=== PATIENT | male | born 1970 | race Caucasian/White ===

== ENCOUNTER 2021-02-22 18:03 | Emergency (ER) | payer BC ==
[2021-02-22 19:11] VITALS: TEMP 99
--- NOTE | 2021-02-22 19:36 | ED ---
General Adult HPI - General Chief complaint: Shortness of Breath Stated complaint: Nausea, loss of tast & smell, fatigue Time Seen by Provider: 02/22/21 19:15 Source: patient, family (), RN notes reviewed Mode of arrival: ambulatory Limitations: no limitations - History of Present Illness Initial comments: This is a well-appearing 50-year-old male that presents to the emergency room with complaints of 7 days of cough, shortness of breath, nausea and body aches. He denies any vomiting or diarrhea. He has had chills but no fevers. His tested positive for covid today. The symptoms have been ongoing since last Thursday. He has history of rheumatoid arthritis. Denies any other medical history, no medicines on a daily basis, not ALLERGIC to any medications. -: days(s) (7) Location: chest Severity scale (1-10): 7 Quality: aching Consistency: constant Improves with: none Associated Symptoms: cough, nausea/vomiting, shortness of breath, other (sore throat, body aches) - Related Data Home Medications Medication Instructions Recorded Confirmed No Known Home Medications 02/22/21 02/22/21 Allergies Allergy/AdvReac Type Severity Reaction Status Date / Time No Known Allergies Allergy Verified 02/22/21 20:28 Review of Systems ROS Statement: Those systems with pertinent positive or pertinent negative responses have been documented in the HPI. ROS Other: All systems not noted in ROS Statement are negative. Past Medical History Past Medical History: Rheumatoid Arthritis (RA) History of Any Multi-Drug Resistant Organisms: None Reported Past Surgical History: No Surgical Hx Reported Past Psychological History: No Psychological Hx Reported Smoking Status: Never smoker Past Alcohol Use History: None Reported Past Drug Use History: None Reported General Exam Limitations: no limitations General appearance: alert, in no apparent distress Head exam: Present: atraumatic, normocephalic, normal inspection Eye exam: Present: normal appearance, EOMI ENT exam: Present: normal exam, normal oropharynx, mucous membranes moist Neck exam: Present: normal inspection, full ROM. Absent: tenderness, meningismus, lymphadenopathy, thyromegaly Respiratory exam: Present: normal lung sounds bilaterally. Absent: respiratory distress, wheezes, rales, rhonchi, stridor, chest wall tenderness, accessory muscle use Cardiovascular Exam: Present: regular rate, normal rhythm, normal heart sounds. Absent: systolic murmur, diastolic murmur, rubs, gallop, clicks, JVD GI/Abdominal exam: Present: soft, normal bowel sounds. Absent: distended, tenderness, guarding, rebound, rigid Extremities exam: Present: full ROM. Absent: pedal edema Back exam: Absent: tenderness, CVA tenderness (R), CVA tenderness (L) Neurological exam: Present: alert, oriented X3 Psychiatric exam: Present: normal affect, normal mood Skin exam: Present: warm, dry, intact, normal color. Absent: rash, cyanosis, diaphoretic Course Vital Signs 02/22/21 02/22/21 19:08 23:31 Temperature 99 F Pulse Rate 95 86 Respiratory 16 22 Rate Blood Pressure 124/77 124/71 O2 Sat by Pulse 97 98 Oximetry Medical Decision Making - Medical Decision Making This is a 50-year-old male patient who presents to the emergency room code exposure to his . He states that he has had symptoms for 10 days. He was given the monoclonal antibodies infusion based on the fact that his tested positive yesterday. Tolerated the infusion well and his vital signs are stable at discharge. He was instructed to quarantine for 10 days from symptom onset and 24 hours without a fever. He was directed to return to the emergency room with any new or concerning symptoms. Vitamin C, vitamin D and zinc for immune health. Tylenol and/or Motrin as needed for pain. Disposition Clinical Impression: Exposure to COVID-19 virus Disposition: HOME SELF-CARE Condition: Good Instructions (If sedation given, give patient instructions): Viral Syndrome (ED) Additional Instructions: Return to the emergency room with any new or worsening symptoms, take Tylenol and/or Motrin as needed for fever or body aches. Self quarantine for 10 days from symptom onset and 24 hours without fever. You can also take vitamin D, vitamin C and zinc for immune support. Increase your fluid intake to prevent dehydration. Is patient prescribed a controlled substance at d/c from ED?: No Referrals: None,Stated [Primary Care Provider] - 1-2 days Sharon Torres MD [STAFF PHYSICIAN] - 1-2 days Time of Disposition: 22:46
[2021-02-22] MEDS ORDERED: ACETAMINOPHEN TAB 325 MG TAB PO STA (19:38)
[2021-02-22] MEDS ORDERED: BAMLANIVIMAB (EUA) 700 MG, ETESEVIMAB (EUA) 1,400 MG in SODIUM CHLORIDE 0.9% 50 ML IVPB ONE (21:15)
[2021-02-22] MEDS ORDERED: SODIUM CHLORIDE 0.9% 50 ML IVPB ONE (21:15)
[2021-02-22 23:32] VITALS: BP 124/71; PULSE 86; RESP 22
== END 2021-02-22 23:32 | disposition home or self-care (01) ==
LOC: EC 18:03
DX: Z20.822 Contact with and (suspected) exposure to COVID-19 (principal)
CPT/HCPCS: 99284; 96365; J3490

== ENCOUNTER → 2021-05-22 | Outpatient (CLI) | payer BC ==
--- NOTE | 2021-05-22 08:41 | CT ---
EXAMINATION TYPE: CT knee LT wo con DATE OF EXAM: 05/22/2021 COMPARISON: None available HISTORY: Fall, tibial plateau fx CT DLP: 522.7 mGycm Automated exposure control for dose reduction was used. TECHNIQUE: Multiplanar CT scan of the left knee without IV contrast administration with 3-D reconstru ction images. FINDINGS: Comminuted depressed fracture involving the left lateral tibial condyle articular surface. There is a depression of about 5 mm at the fracture site and extending for about 2.4 cm in transverse dimension . Multiple fracture lines are seen extending inferiorly through the proximal portion of the tibia fro m the depression site and seen extending from the anterior margin of the tibia to its lateral margin. There is a gap up to 5 mm at the anterior aspect of the longitudinal fracture. The fracture apparentl y extends to the proximal tibiofibular articulation which appears nondisplaced without dislocation or subluxation. No other definite acute fracture line identified. Minimal tibiofemoral osteophytosis. S [id number] knee joint effusion. IMPRESSION: Lateral tibial condyle intra-articular depressed fracture as detailed above.
== END | disposition home or self-care (01) ==
LOC: RADCTMAIN 06:23
PROVIDERS: ATTEND Orthopaedic Surgery
DX: S82.122A Displaced fracture of lateral condyle of left tibia, initial encounter for closed fracture (principal); W19.XXXA Unspecified fall, initial encounter

== ENCOUNTER 2021-06-14 11:56 | Inpatient (IN) | payer BC ==
[2021-06-14 13:31] LABS: Basophils % (A) 1 %; Eosinophils # (A) 0.2 k/uL (0-0.7); Eosinophils % (A) 3 %; HCT 44.8 % (39.0-53.0); HGB 14.4 gm/dL (13.0-17.5); Lymphocytes # (A) 1.4 k/uL (1.0-4.8); Lymphocytes % (A) 21 %; MCH 29.6 pg (25.0-35.0); MCHC 32.2 g/dL (31.0-37.0); MCV 91.8 fL (80.0-100.0); Mean Platelet Volume 7.1; Monocytes # (A) 0.3 k/uL (0-1.0); Monocytes % (A) 5 %; Neutrophils # (A) 4.6 k/uL (1.3-7.7); Neutrophils % (A) 69 %; Platelet Count 264 k/uL (150-450); RBC 4.87 m/uL (4.30-5.90); RDW 13.1 % (11.5-15.5); WBC 6.6 k/uL (3.8-10.6)
[2021-06-14 13:36] LABS: African American GFR (CKD) >90 (>60 ml/min/1.73 sqM); Anion Gap 4 mmol/L; Blood Urea Nitrogen 13 mg/dL (9-20); Calcium 9.3 mg/dL (8.4-10.2); Carbon Dioxide 30 mmol/L (22-30); Chloride 106 mmol/L (98-107); Glucose 91 mg/dL (74-99); Non-African American GFR(CKD) >90 (>60 ml/min/1.73 sqM); Potassium 4.4 mmol/L (3.5-5.1); Sodium 140 mmol/L (137-145)
--- NOTE | 2021-06-14 13:36 | ED ---
General Adult HPI - General Chief complaint: Recheck/Abnormal Lab/Rx Stated complaint: Blood Clot/Lt leg Time Seen by Provider: 06/14/21 12:15 Source: patient, RN notes reviewed, old records reviewed Mode of arrival: wheelchair Limitations: no limitations - History of Present Illness Initial comments: Patient is a 50-year-old male with past medical history remarkable for left tibial plateau fracture that is being managed medically [facility] with a multi-day history of worsening lower extremity edema, as well as some discomfort. Saw his orthopedic surgeon today, who sent him for ultrasound to evaluate for DVT. DVTs ultrasound was positive for left femoral DVT. Presents for further evaluation. Patient does endorse having some left- sided rib pain that started when he began using crutches. Denies any shortness of breath, however does endorse some mild rib discomfort that is improving over the last few weeks. It is somewhat pleuritic in nature. His no other acute complaints at this time. Denies any teddy chest pain, fevers, chills, cough. No history of blood clots. Presents for DVT and concern for possible blood clot in his lungs. - Related Data Home Medications Medication Instructions Recorded Confirmed No Known Home Medications 02/22/21 02/22/21 Allergies Allergy/AdvReac Type Severity Reaction Status Date / Time No Known Allergies Allergy Verified 06/14/21 12:00 Review of Systems ROS Statement: Those systems with pertinent positive or pertinent negative responses have been documented in the HPI. Review of Systems: CONST: Denies fever EYES: Denies blurry vision ENT: Denies nasal congestion C/V: Endorses pleuritic chest discomfort RESP: Denies shortness of breath GI: Denies abdominal pain : Denies dysuria SKIN: Endorses left lower extremity edema MSK: Endorses left groin pain NEURO: Denies headache ROS Other: All systems not noted in ROS Statement are negative. Past Medical History Past Medical History: Rheumatoid Arthritis (RA) History of Any Multi-Drug Resistant Organisms: None Reported Past Surgical History: No Surgical Hx Reported Past Psychological History: No Psychological Hx Reported Smoking Status: Never smoker Past Alcohol Use History: None Reported Past Drug Use History: None Reported General Exam - General Exam Comments Initial Comments: General: Appears in no acute distress. HEAD: Normal with no signs of head trauma. EYES: PERRLA, EOMI, conjunctiva normal, no discharge. ENT: Hearing grossly intact, normal oropharynx. RESPIRATORY: Clear breath sounds bilaterally. No wheezes, rales, or rhonchi. No hypoxia. No increased work of breathing. C/V: Regular rate and rhythm. S1 and S2 auscultated. Pitting edema of the left lower extremity is present distal to the brace. Peripheral pulses are 2+ and intact throughout, including the left DP and left PT. ABD: Abd is soft, nontender, nondistended EXT: Normal range of motion, no obvious deformity. Left knee braces in place. Edema distal to the left knee brace. SKIN: No rashes or lesions observed on exposed skin. NEURO: Alert and oriented 4. Neurovascular intact throughout. No focal deficits. Limitations: no limitations Course Vital Signs 06/14/21 11:57 Temperature 98.5 F Pulse Rate 103 H Respiratory 20 Rate Blood Pressure 134/74 O2 Sat by Pulse 96 Oximetry Medical Decision Making - Medical Decision Making Based on the patient's presentation and physical exam, he has a known left femoral DVT and there is concern for possible pulmonary embolism. Therefore we will obtain basic laboratory studies, screening EKG as well as a CT angiogram to evaluate for PE. Patient was in agreement this plan. EKG showed no signs of acute ischemia.Labs were unremarkable. CT PE did reveal bilateral subsegmental and segmental pulmonary emboli. I discussed this with the radiologist. No sign of right heart strain. I did discuss with the patient regarding the CT findings. He will be started on a heparin drip. He will be admitted to the hospital. He continues to have stable vital signs within normal limits throughout his stay. I spoke with the admitting team under Dr. Leal was in agreement this plan. Pulmonology Dr. freeman was consulted who agreed to value the patient. Patient will be admitted to a telemetry bed and serous condition. Cardiology was consulted to evaluate the echo, looking for right heart strain. - Lab Data Result diagrams: 06/14/21 13:07 06/14/21 13:07 Lab Results 06/14/21 06/14/21 06/14/21 Range/Units 13:07 13:07 13:07 WBC 6.6 (3.8-10.6) k/uL RBC 4.87 (4.30-5.90) m/uL Hgb 14.4 (13.0-17.5) gm/dL Hct 44.8 (39.0-53.0) % MCV 91.8 (80.0-100.0) fL MCH 29.6 (25.0-35.0) pg MCHC 32.2 (31.0-37.0) g/dL RDW 13.1 (11.5-15.5) % Plt Count 264 (150-450) k/uL MPV 7.1 Neutrophils % 69 % Lymphocytes % 21 % Monocytes % 5 % Eosinophils % 3 % Basophils % 1 % Neutrophils # 4.6 (1.3-7.7) k/uL Lymphocytes # 1.4 (1.0-4.8) k/uL Monocytes # 0.3 (0-1.0) k/uL Eosinophils # 0.2 (0-0.7) k/uL Basophils # 0.0 (0-0.2) k/uL PT 11.1 (9.0-12.0) sec INR 1.0 (<1.2) APTT 22.6 (22.0-30.0) sec Sodium 140 (137-145) mmol/L Potassium 4.4 (3.5-5.1) mmol/L Chloride 106 (98-107) mmol/L Carbon Dioxide 30 (22-30) mmol/L Anion Gap 4 mmol/L BUN 13 (9-20) mg/dL Creatinine 0.85 (0.66-1.25) mg/dL Est GFR (CKD-EPI)AfAm >90 (>60 ml/min/1.73 sqM) Est GFR (CKD-EPI)NonAf >90 (>60 ml/min/1.73 sqM) Glucose 91 (74-99) mg/dL Calcium 9.3 (8.4-10.2) mg/dL - EKG Data -: EKG Interpreted by Me EKG Comments: 12-lead Electrocardiogram Interpretation Note EKG was reviewed and interpreted by myself. 12-lead ECG performed at 1311 is interpreted by me as revealing normal sinus rhythm at a rate of 87 beats per minute. [place] is normal. AL interval is 154 ms, QRS duration is 92 ms, QTc is 394 ms.. There were no ST or T wave abnormalities to suggest myocardial ischemia or injury. R wave progression across the precordium was satisfactory. By my interpretation this EKG is non-diagnostic for acute ischemia. Critical Care Time Critical Care Time: Yes Total Critical Care Time: 35 Critical Care Time: Upon my evaluation, this patient had a high probability of imminent or life- threatening deterioration due to bilateral pulmonary emboli, left groin DVT, started on heparin, which required my direct attention, intervention, and personal management. I have personally provided 35 minutes of critical care time exclusive of time spent on separately billable procedures. Time includes review of laboratory data, radiology results, discussion with consultants, and monitoring for potential decompensation. Interventions were performed as documented in my note. Disposition Clinical Impression: Pulmonary embolism, DVT (deep venous thrombosis), Tibial plateau fracture, left Disposition: ADMITTED IP TO THIS HOSP Condition: Serious Referrals: Roberto Jewell DO [Primary Care Provider] - 1-2 days
[2021-06-14 13:41] LABS: Partial Thromboplastin Time 22.6 sec (22.0-30.0); Prothrombin Time 11.1 sec (9.0-12.0)
[2021-06-14] MEDS ORDERED: HEPARIN SODIUM 1,000 UN/ML (10ML VL) IV ONE (15:16)
[2021-06-14] MEDS ORDERED: HEPARIN SODIUM 1,000 UN/ML (10ML VL) IV PRN (15:16)
--- NOTE | 2021-06-14 15:21 | CT ---
EXAMINATION TYPE: CT chest angio for PE DATE OF EXAM: 06/14/2021 COMPARISON: None available HISTORY: Chest pain. History of recent leg injury on 05/18/21. CT DLP: 388.9 mGy.cm. Automated Exposure Control for Dose Reduction was Utilized. TECHNIQUE AND CONTRAST: CTA scan of the thorax is performed with IV Contrast, patient injected with 80ml mL of Isovue 370, pu lmonary angiogram protocol. MIP Images are created on CT scanner and reviewed. FINDINGS: Pulmonary emboli are seen in the segmental and subsegmental branches of the right lobe pulmonary angi maxim and to a lesser extent in the left lower lobe pulmonary arteries. No definite pulmonary emboli s een within the pulmonary trunk or the main pulmonary arteries. No signs of right cardiac strain. No g ross cardiomegaly. No sizable pericardial effusion. Unremarkable thoracic aorta and its main branches . Bilateral basal linear pulmonary atelectasis with air bronchogram, thicker on the left side. Lingular atelectasis is also noted, infarction cannot be excluded. Follow-up to complete resolution. Patent t rachea and main bronchi. No pleural effusion. No pathologically enlarged lymph nodes in the chest. Un remarkable upper abdomen. No aggressive bone lesion. IMPRESSION: 1. Bilateral segmental and subsegmental lower lobe pulmonary emboli as described above. No signs of r ight cardiac strain. 2. Bilateral basal pulmonary atelectasis more on the left side. Pulmonary infarction or underlying le erich can't be excluded. Recommend follow-up to complete resolution. Other incidental findings as desc ribed above. Findings were discussed with the referring ER physician immediately after the CT scan was performed.
[2021-06-14] MEDS ORDERED: NALOXONE 0.4 MG/ML 1 ML VIAL IV PRN (15:31)
[2021-06-14] MEDS ORDERED: ONDANSETRON 4 MG/2 ML VIAL IVP PRN (15:31)
[2021-06-14] MEDS ORDERED: MORPHINE SULFATE 4 MG/ML SYRINGE IVP PRN (15:33)
[2021-06-14] MEDS: HEPARIN SOD,PORK IN 0.45% NACL 25,000 UNIT in 0.45% NACL 1 250ML.BAG IV SCH (15:39)
[2021-06-14] MEDS ORDERED: ALPRAZolam 0.25 MG TAB PO PRN (16:12)
[2021-06-14] MEDS ORDERED: HYDROcodone/APAP 5-325MG 1 EACH TAB PO PRN (16:12)
[2021-06-14] MEDS: SODIUM CHLORIDE 0.9% 1,000 ML IV SCH (17:32)
[2021-06-14 17:40] LABS: INR 1.1 (<1.2)
[2021-06-14 17:57] LABS: Partial Thromboplastin Time 171.2 sec (22.0-30.0)
--- NOTE | 2021-06-14 18:51 | HP ---
HISTORY AND PHYSICAL DATE OF SERVICE: 06/14/2021. CHIEF COMPLAINT: Bilateral chest pains and as well as left leg pain. HISTORY OF PRESENT ILLNESS: This 50-year-old gentleman with a past medical history of fibromyalgia, hypothyroidism, being followed by Dr. Roberto Jewell in the outpatient setting had a recent fall and had left plateau fracture which was being managed conservatively by Dr. Keller. The patient is complaining of left leg pain, calf pain, and as well as some chest pains bilaterally. The patient was found to have left leg DVT. Patient came to [facility] and evaluation showed evidence of bilateral segmental subsequent lower lobe pulmonary embolism with no signs of any cardiac strain and bilateral basilar pulmonary atelectasis also noted. Pulmonary infarction cannot be ruled out. There is no history of fever, rigors. No headache, loss of consciousness, seizures at this time. PAST MEDICAL HISTORY: History of fibromyalgia, hypothyroidism. MEDICATIONS: Home medications none. ALLERGIES: None. FAMILY HISTORY: No history of any DVT. History of abdominal aortic aneurysm and dementia. SOCIAL HISTORY: No history of smoking. No history of alcohol intake. REVIEW OF SYSTEMS: 14-point review is negative except as mentioned earlier. PHYSICAL EXAMINATION: Pulse is 87, blood pressure 143/94, respiration 18, pulse ox 98% on room air. HEENT: Conjunctivae normal. CARDIOVASCULAR: S1, S2 muffled. RESPIRATION: Breath sounds diminished in the bases. No rhonchi. No crackles. ABDOMEN: Soft, nontender. No mass palpable. LEGS: Left knee in splint status post fracture. Left leg swelling also present. Mildly tender. SKIN: No ulcers. No rashes. JOINTS: No active deforming arthropathy. NERVOUS SYSTEM: No focal deficits. LABS: Reviewed. CT angio personally reviewed. The EKG reviewed, normal. ASSESSMENT: 1. Acute bilateral pulmonary embolism with pulmonary infarct, possibly. 2. Acute deep vein thrombosis of the left leg. 3. History of recent left knee fracture with tibial femoral plateau fracture. 4. Fibromyalgia. RECOMMENDATIONS AND DISCUSSION: This 50-year-old gentleman who presented with multiple medical issues, we will monitor the patient closely. I would recommend IV heparin. Pulmonary and Hematology evaluation. Otherwise symptomatic treatment. The patient will require further anticoagulant workup as an outpatient because of acute PE. Otherwise, we will monitor and ensure oxygenation. Prognosis guarded. Further recommendations to follow. MMODL / IJN: [id number] /
[2021-06-15] MEDS: SODIUM CHLORIDE 0.9% 1,000 ML IV SCH ×2 (03:29→20:01)
[2021-06-15] MEDS: HEPARIN SOD,PORK IN 0.45% NACL 25,000 UNIT in 0.45% NACL 1 250ML.BAG IV SCH ×2 (03:29→19:59)
[2021-06-15 04:44] LABS: Basophils % (A) 1 %; Eosinophils # (A) 0.3 k/uL (0-0.7); Eosinophils % (A) 4 %; HCT 41.7 % (39.0-53.0); HGB 13.5 gm/dL (13.0-17.5); Lymphocytes # (A) 1.3 k/uL (1.0-4.8); Lymphocytes % (A) 21 %; MCH 29.9 pg (25.0-35.0); MCHC 32.5 g/dL (31.0-37.0); MCV 92.1 fL (80.0-100.0); Mean Platelet Volume 7.1; Monocytes # (A) 0.4 k/uL (0-1.0); Monocytes % (A) 6 %; Neutrophils # (A) 4.3 k/uL (1.3-7.7); Neutrophils % (A) 67 %; Platelet Count 223 k/uL (150-450); RBC 4.53 m/uL (4.30-5.90); RDW 12.9 % (11.5-15.5); WBC 6.4 k/uL (3.8-10.6)
[2021-06-15 05:19] LABS: ALT 12 U/L (4-49); AST 21 U/L (17-59); African American GFR (CKD) >90 (>60 ml/min/1.73 sqM); Albumin 3.7 g/dL (3.5-5.0); Alkaline Phosphatase 71 U/L (38-126); Anion Gap 8 mmol/L; Blood Urea Nitrogen 13 mg/dL (9-20); Calcium 8.4 mg/dL (8.4-10.2); Carbon Dioxide 28 mmol/L (22-30); Chloride 104 mmol/L (98-107); Glucose 91 mg/dL (74-99); Non-African American GFR(CKD) >90 (>60 ml/min/1.73 sqM); Sodium 140 mmol/L (137-145); Total Bilirubin 0.5 mg/dL (0.2-1.3); Total Protein 6.5 g/dL (6.3-8.2)
[2021-06-15] MEDS: PANTOPRAZOLE 40 MG TABLET PO SCH (06:26)
--- NOTE | 2021-06-15 07:19 | XR ---
EXAMINATION TYPE: XR chest 1V portable DATE OF EXAM: 06/15/2021 COMPARISON: None HISTORY: CHF TECHNIQUE: Single frontal view of the chest is obtained. FINDINGS: There is a small focal opacity obscuring the left costophrenic angle which possibly repres ents a small pneumonic infiltrate. The right lung is clear. There is no pneumothorax or large pleural effusion. Heart size is normal and the vasculature is not congested. The osseous structures are intact. IMPRESSION: Small focal opacity left lung base. The findings most consistent with pneumonic infiltra te. Clinical correlation short-term follow-up to resolution is recommended. There is no overt CHF.
--- NOTE | 2021-06-15 10:58 | P.CNOR ---
History of Present Illness - [facility] Consult date: 06/15/21 Consult reason: fracture (Follow-up tibial plateau fracture left leg.) History of present illness: This is a 50-year-old male who has been following with our office regarding his tibial plateau fracture of his left knee. He has been managed nonoperatively. He was seen in the office on 06/14/2021 and had complaints of increased swelling to the lower extremity. He had also been complaining of some left-sided rib pain which she thought was attributed to using his crutches. He was sent for a venous Doppler which was positive for DVT. He was then referred to the emergency department for further evaluation and workup. On CTA he was found to have bilateral pulmonary emboli. He is admitted to internal medicine. We are consulted for follow-up of the left knee. Past Medical History Past Medical History: Fibromyalgia, Thyroid Disorder Additional Past Medical History / Comment(s): L tibial plateau fracture being treated medically, past hypothyroid/no longer needs to take medication. History of Any Multi-Drug Resistant Organisms: None Reported Past Surgical History: No Surgical Hx Reported Additional Past Surgical History / Comment(s): EGD, colonoscopy, capsule endoscopy Past Anesthesia/Blood Transfusion Reactions: No Reported Reaction Past Psychological History: No Psychological Hx Reported Additional Psychological History / Comment(s): Pt resides with his spouse. 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 Smoking Status: Never smoker Past Alcohol Use History: None Reported Past Drug Use History: None Reported - Past Family History Father Family Medical History: Dementia, Vascular Disorder Additional Family Medical History / Comment(s): AAA repair Mother Family Medical History: Hypertension, Musculoskeletal Disorder, Neurologic Disorder Additional Family Medical History / Comment(s): Parkinson's, Reynaulds Medications and Allergies Home Medications Medication Instructions Recorded Confirmed Type No Known Home Medications 02/22/21 06/14/21 History Allergies Allergy/AdvReac Type Severity Reaction Status Date / Time No Known Allergies Allergy Verified 06/14/21 15:56 Physical Examination This is a pleasant 50-year-old male in no acute distress. He is alert and oriented 3. Exam of the head neck reveal no obvious deformity. He has full cervical spine motion without difficulty or pain. Exam the upper extremities is unremarkable. He has full shoulder, elbow, wrist and finger motion bilaterally. Neurovascular status to the upper extremities is intact. Exam of the lower extremities reveals mild swelling to the left lower leg and ankle. He has resting with his brace off and his knee in extension. He has full foot and ankle motion without difficulty or pain. Minimal Pain with palpation. Results - Labs Labs: Abnormal Lab Results - Last 24 Hours (Table) 06/14/21 06/14/21 06/15/21 Range/Units 16:43 21:22 04:22 APTT 171.2 H* 75.6 H 65.0 H (22.0-30.0) sec H & H 06/14/21 06/15/21 Range/Units 13:07 04:22 Hgb 14.4 13.5 (13.0-17.5) gm/dL Hct 44.8 41.7 (39.0-53.0) % Coagulation 06/14/21 06/14/21 Range/Units 13:07 16:43 INR 1.0 1.1 (<1.2) Result Diagrams: 06/15/21 04:22 06/15/21 04:22 Assessment and Plan (1) DVT (deep venous thrombosis) Current Visit: Yes Status: Acute Code(s): I82.409 - ACUTE EMBOLISM AND THOMBOS UNSP DEEP VN UNSP LOWER EXTREMITY SNOMED Code(s): 144369246 (2) Pulmonary embolism Current Visit: Yes Status: Acute Code(s): I26.99 - OTHER PULMONARY EMBOLISM WITHOUT ACUTE COR PULMONALE SNOMED Code(s): 10793661 (3) Tibial plateau fracture, left Current Visit: Yes Status: Acute Code(s): S82.142A - DISPLACED BICONDYLAR FRACTURE OF LEFT TIBIA, INIT SNOMED Code(s): 803365499 Plan: The clinical findings are discussed with the patient. He is to continue with the knee brace when he is up. He may have the brace off when in bed. His activity level will be dictated by internal medicine. He is scheduled for fol low-up with Dr. Keller in 2 weeks. He is to keep that appointment or call sooner if any orthopedic questions or concerns arise.
--- NOTE | 2021-06-15 12:17 | ECHOF ---
Referral Reason:Pulmonary emboli bilateral MEASUREMENTS -------- HEIGHT: 188.0 cm WEIGHT: 90.7 kg BP: RVIDd: 2.4 cm (< 3.3) IVSd: 1.0 cm (0.6 - 1.1) LVIDd: 4.9 cm (3.9 - 5.3) LVPWd: 1.3 cm (0.6 - 1.1) IVSs: 1.1 cm LVIDs: 3.6 cm LVPWs: 1.3 cm LA Diam: 4.1 cm (2.7 - 3.8) Ao Diam: 2.9 cm (2.0 - 3.7) AV Cusp: 2.0 cm (1.5 - 2.6) LA Diam: 3.6 cm (2.7 - 3.8) MV EXCURSION: 21.910 mm (> 18.000) MV EF SLOPE: 198 mm/s (70 - 150) EPSS: 0.7 cm MV E Giovanny: 0.63 m/s MV DecT: 147 ms MV A Giovanny: 0.69 m/s MV E/A Ratio: 0.91 RAP: 5.00 mmHg RVSP: 22.82 mmHg FINDINGS -------- Sinus rhythm. This was a technically good study. LV size, wall thickness and systolic function are normal, with an EF greater than 55%. The left cali tricular size is normal. The right ventricle is normal in size. The left atrium is mildly dilated. The right atrial size is normal. The aortic valve is trileaflet, and appears structurally normal. No aortic stenosis or regurgitation. Mild mitral regurgitation is present. Mild tricuspid regurgitation present. Right ventricular systolic pressure is normal at < 35 mmHg. There is no pulmonic regurgitation present. There is a trivial pericardial effusion present. CONCLUSIONS -------- 1. LV size, wall thickness and systolic function are normal, with an EF greater than 55%. 2. The left ventricular size is normal. 3. The right ventricle is normal in size. 4. The left atrium is mildly dilated. 5. The right atrial size is normal. 6. The aortic valve is trileaflet, and appears structurally normal. No aortic stenosis or regurgitati on. 7. Mild mitral regurgitation is present. 8. Mild tricuspid regurgitation present. 9. There is no pulmonic regurgitation present. 10. There is a trivial pericardial effusion present. TIE HACKER: Isabel Terrell RDCS
--- NOTE | 2021-06-15 13:05 | P.CRDCN ---
History of Present Illness History of present illness: 50-year-old gentleman with history of hypothyroidism and fibromyalgia and a recent fall and fracture of the left patella and tibia. He was Being managed conservatively by Dr. Keller. Presented to hospital with left leg and calf pain and chest discomfort bilaterally. Chest discomfort is sharp moderate intensity and was pleuritic in nature. This is associated with exertional shortness of breath. 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 He was found to have left leg DVT and a computed tomography scan of the chest revealed bilateral pulmonary embolism without any evidence of strain on the computed tomography scan. An echoc ardiogram which I personally reviewed shows normal LV systolic function normal size right ventricle no evidence of pulmonary hypertension and no evidence of RV strain. Patient should continue IV heparin and should be switched to oral anticoagulant off to 48 hours. Constitutional: Denies chills. Denies fever. Eyes: Denies blurred vision. Denies pain. Ears, nose, mouth and throat: Denies headache. Denies sore throat. Cardiovascular: Pleuritic chest pain Respiratory: Significant for shortness of breath and pleuritic chest pain Gastrointestinal: Denies abdominal pain. Denies diarrhea. Denies nausea. Denies vomiting. Musculoskeletal: Denies myalgias. Integumentary: Denies pruritus. Denies rash. Neurological: Denies numbness. Denies weakness. Psychiatric: Denies anxiety. Denies depression. Endocrine: Denies fatigue. Denies weight change. Genitourinary: Denies burning, hematuria, frequency of urination. Hematological: No anemia or excess bleeding. General: The patient is awake and alert, in no distress, and does not appear acutely ill. Skin: Skin is warm and dry and no rashes or lesions are noted. Eye: Pupils are equal, round and reactive to light, extra-ocular movements are intact; there is normal conjunctiva bilaterally. Ears, nose, mouth and throat: There are moist mucous membranes and no oral lesions. Neck: The neck is supple, there is no tenderness or JVD. Cardiovascular: There is a regular rate and rhythm. No murmur, rub or gallop is appreciated. Respiratory: Lungs are clear to auscultation, respirations are non-labored, breath sounds are equal. Gastrointestinal: Soft, non-distended, non-tender abdomen without masses or organomegaly noted. There is no rebound or guarding present. Bowel sounds are unremarkable. Back: There is no tenderness to palpation in the midline. There is no obvious deformity. Musculoskeletal: Normal ROM, no tenderness, There is no pedal edema. There is no calf tenderness or swelling. Extremities: No edema. Vascular: Femoral pulse is normal. Posterior tibial pulses are normal .Dorsalis pedis is palpable. Neurological: CN II-XII intact. There are no obvious motor or sensory deficits. Speech is normal. Psychiatric: Cooperative, appropriate mood & affect, normal judgment. Assessment and plan: Acute left leg DVT with bilateral pulmonary embolism secondary to fracture involving left leg I will continue IV heparin I reviewed 2-D echo patient does not have any evidence of RV strain We'll convert him to either Xarelto or eliquis Past Medical History Past Medical History: Fibromyalgia, Thyroid Disorder Additional Past Medical History / Comment(s): L tibial plateau fracture being treated medically, past hypothyroid/no longer needs to take medication. History of Any Multi-Drug Resistant Organisms: None Reported Past Surgical History: No Surgical Hx Reported Additional Past Surgical History / Comment(s): EGD, colonoscopy, capsule endoscopy Past Anesthesia/Blood Transfusion Reactions: No Reported Reaction Past Psychological History: No Psychological Hx Reported Additional Psychological History / Comment(s): Pt resides with his spouse. 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 Smoking Status: Never smoker Past Alcohol Use History: None Reported Past Drug Use History: None Reported - Past Family History Father Family Medical History: Dementia, Vascular Disorder Additional Family Medical History / Comment(s): AAA repair Mother Family Medical History: Hypertension, Musculoskeletal Disorder, Neurologic Disorder Additional Family Medical History / Comment(s): Parkinson's, Reynaulds Medications and Allergies Home Medications Medication Instructions Recorded Confirmed Type No Known Home Medications 02/22/21 06/14/21 History Allergies Allergy/AdvReac Type Severity Reaction Status Date / Time No Known Allergies Allergy Verified 06/14/21 15:56 Physical Exam Vitals: Vital Signs Temp Pulse Pulse Resp BP BP Pulse Ox 06/15/21 11:30 97.8 F 89 18 143/88 96 06/15/21 08:32 98.3 F 92 18 145/78 96 06/15/21 03:55 98 F 77 18 120/74 98 06/14/21 23:49 98.1 F 93 17 132/82 95 06/14/21 20:00 98 F 94 18 145/81 97 06/14/21 17:58 97.2 F L 105 H 18 97 06/14/21 17:33 102 H 18 151/92 96 06/14/21 15:56 87 18 153/95 98 Intake and Output 06/14/21 06/15/21 06/15/21 22:59 06:59 14:59 Intake Total 349.132 74.752 118 Balance 349.132 74.752 118 Intake: Intake, IV Titration 109.132 74.752 Amount Heparin Sod,Pork in 0.45% 109.132 74.752 NaCl 25,000 unit In 0.45 % NaCl 1 250ml.bag @ 18 UNITS/KG/HR 16.329 mls/hr IV .[id number] [facility] Rx#: [id number] Oral 240 118 Other: Voiding Method Toilet Toilet Toilet Urinal # Voids 1 1 Weight 90.718 kg 92 kg Results 06/15/21 04:22 06/15/21 04:22 Cardiac Enzymes 06/14/21 06/14/21 06/15/21 Range/Units 18:18 21:22 04:22 AST 21 (17-59) U/L Troponin I <0.012 <0.012 (0.000-0.034) ng/mL Coagulation 06/14/21 06/14/21 06/14/21 Range/Units 13:07 16:43 21:22 PT 11.1 12.0 (9.0-12.0) sec APTT 22.6 171.2 H* 75.6 H (22.0-30.0) sec 06/15/21 Range/Units 04:22 PT (9.0-12.0) sec APTT 65.0 H (22.0-30.0) sec CBC 06/14/21 06/15/21 Range/Units 13:07 04:22 WBC 6.6 6.4 (3.8-10.6) k/uL RBC 4.87 4.53 (4.30-5.90) m/uL Hgb 14.4 13.5 (13.0-17.5) gm/dL Hct 44.8 41.7 (39.0-53.0) % Plt Count 264 223 (150-450) k/uL Comprehensive Metabolic Panel 06/14/21 06/15/21 Range/Units 13:07 04:22 Sodium 140 140 (137-145) mmol/L Potassium 4.4 4.0 (3.5-5.1) mmol/L Chloride 106 104 (98-107) mmol/L Carbon Dioxide 30 28 (22-30) mmol/L BUN 13 13 (9-20) mg/dL Creatinine 0.85 0.88 (0.66-1.25) mg/dL Glucose 91 91 (74-99) mg/dL Calcium 9.3 8.4 (8.4-10.2) mg/dL AST 21 (17-59) U/L ALT 12 (4-49) U/L Alkaline Phosphatase 71 (38-126) U/L Total Protein 6.5 (6.3-8.2) g/dL Albumin 3.7 (3.5-5.0) g/dL Current Medications Generic Name Dose Route Start Last Admin Trade Name Freq PRN Reason Stop Dose Admin Hydrocodone Bitart/Acetaminophen 1 each 06/14/21 16:12 Hydrocodone/Apap 5-325mg 1 Each Tab PO Q6HR PRN Pain Alprazolam 0.25 mg 06/14/21 16:12 Alprazolam 0.25 Mg Tab PO TID PRN Anxiety Heparin Sodium (Porcine) 0 unit 06/14/21 15:16 Heparin Sodium 1,000 Un/Ml (10ml Vl) IV PER PROTOCOL PRN Low PTT Protocol Heparin Sodium/Sodium Chloride 250 mls @ 16.329 mls/hr 06/14/21 15:30 06/15/21 03:29 25,000 unit/ Sodium Chloride IV 16 units/kg/hr .[id number] STEPHANIE 14.515 mls/hr Administration Protocol 18 UNITS/KG/HR Sodium Chloride 1,000 mls @ 75 mls/hr 06/14/21 15:45 06/15/21 03:29 Saline 0.9% IV 75 mls/hr .[id number] STEPHANIE Administration Morphine Sulfate 4 mg 06/14/21 15:33 Morphine Sulfate 4 Mg/Ml Syringe IVP Q6HR PRN Pain Naloxone HCl 0.2 mg 06/14/21 15:31 Naloxone 0.4 Mg/Ml 1 Ml Vial IV Q2M PRN Opioid Reversal Ondansetron HCl 4 mg 06/14/21 15:31 Ondansetron 4 Mg/2 Ml Vial IVP Q8HR PRN Nausea And Vomiting Pantoprazole Sodium 40 mg 06/15/21 07:30 06/15/21 06:26 Pantoprazole 40 Mg Tablet PO Not Given [id number] [facility] Intake and Output 06/14/21 06/15/21 06/15/21 22:59 06:59 14:59 Intake Total 349.132 74.752 118 Balance 349.132 74.752 118 Intake: Intake, IV Titration 109.132 74.752 Amount Heparin Sod,Pork in 0.45% 109.132 74.752 NaCl 25,000 unit In 0.45 % NaCl 1 250ml.bag @ 18 UNITS/KG/HR 16.329 mls/hr IV .[id number] [facility] Rx#: [id number] Oral 240 118 Other: Voiding Method Toilet Toilet Toilet Urinal # Voids 1 1 Weight 90.718 kg 92 kg 06/15/21 04:22 06/15/21 04:22
--- NOTE | 2021-06-15 15:15 | P.CNPUL ---
History of Present Illness Consult date: 06/15/21 Requesting physician: Lisa Leal Reason for consult: dyspnea, chest pain, hypoxemia, pulmonary embolism, abnormal CXR/CT Chief complaint: Shortness of breath and left-sided chest pain. History of present illness: Pulmonary consult dated 06/15/2021. 50-year-old male who was seen in the emergency department yesterday, June 14. He has a history of recent left tibial plateau fracture, this pain managed medically by one of the orthopedic surgeons. More recently, he complained of 2 things including some left-sided chest pain or chest discomfort. He apparently noticed some swelling in his left lower extremity. When he saw the orthopedic surgeon on the day of his admission to the hospital, he was sent for an ultrasound to evaluate for DVT. He apparently had a left femoral DVT. Because of worsening shortness of breath, and inability to take a deep breath without pain, the patient was sent for CTA which showed pulmonary embolism, bilaterally, in the segmental and subsegmental branches of the pulmonary arteries. In addition, on the left side, the patient had a classic Charles's Hump, consistent with pulmonary infarction. The patient is currently not short of breath. He is on room air. He is receiving IV heparin. I spent a great deal time talking to him about the fact that he had a provoked pulmonary embolism, should be treated for 3 months. The trigger in his case was the left tibial plateau fracture. The CTA was negative for right heart strain. The patient could be placed on a factor X a inhibitor, and discharged. He is currently very stable. White count 6.4, he will 13.5, hematocrit 41.7, platelet count 223,000. PTT is 65. Sodium 140, potassium 4, chlorides 104, CO2 28, anion gap 8, BUN 13, creatinine 0.88. Chest x-ray shows a small focal opacity in the left lung base. CAT scan shows bilateral segmental and subsegmental lower lobe pulmonary emboli. Review of Systems REVIEW OF SYSTEMS: CONSTITUTIONAL: [Negative.] NEUROLOGIC: [ Negative.] HEENT: [ Negative.] CARDIAC: Pleuritic chest pain. Left leg swelling. PULMONARY: Shortness of breath, and inability to take a deep breath without pain. GI: [Negative.] : [Negative.] RHEUMATOLOGIC: [ Negative.] IMMUNOLOGIC: [ Negative.] ENDOCRINE: [Negative. ] DERMATOLOGIC: [Negative.] Past Medical History Past Medical History: Fibromyalgia, Thyroid Disorder Additional Past Medical History / Comment(s): L tibial plateau fracture being treated medically, past hypothyroid/no longer needs to take medication. History of Any Multi-Drug Resistant Organisms: None Reported Past Surgical History: No Surgical Hx Reported Additional Past Surgical History / Comment(s): EGD, colonoscopy, capsule endoscopy Past Anesthesia/Blood Transfusion Reactions: No Reported Reaction Past Psychological History: No Psychological Hx Reported Additional Psychological History / Comment(s): Pt resides with his spouse. 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 Smoking Status: Never smoker Past Alcohol Use History: None Reported Past Drug Use History: None Reported - Past Family History Father Family Medical History: Dementia, Vascular Disorder Additional Family Medical History / Comment(s): AAA repair Mother Family Medical History: Hypertension, Musculoskeletal Disorder, Neurologic Disorder Additional Family Medical History / Comment(s): Parkinson's, Reynaulds Medications and Allergies Home Medications Medication Instructions Recorded Confirmed Type No Known Home Medications 02/22/21 06/14/21 History Allergies Allergy/AdvReac Type Severity Reaction Status Date / Time No Known Allergies Allergy Verified 06/14/21 15:56 Physical Exam Osteopathic Statement: *. No significant issues noted on an osteopathic structural exam other than those noted in the History and Physical/Consult. Vitals: Vital Signs Temp Pulse Pulse Resp BP BP Pulse Ox 06/15/21 14:49 18 06/15/21 11:30 97.8 F 89 18 143/88 96 06/15/21 08:32 98.3 F 92 18 145/78 96 06/15/21 03:55 98 F 77 18 120/74 98 06/14/21 23:49 98.1 F 93 17 132/82 95 06/14/21 20:00 98 F 94 18 145/81 97 06/14/21 17:58 97.2 F L 105 H 18 97 06/14/21 17:33 102 H 18 151/92 96 06/14/21 15:56 87 18 153/95 98 Intake and Output 06/15/21 06/15/21 06/15/21 06:59 14:59 22:59 Intake Total 74.752 118 Balance 74.752 118 Intake: Intake, IV Titration 74.752 Amount Heparin Sod,Pork in 0.45% 74.752 NaCl 25,000 unit In 0.45 % NaCl 1 250ml.bag @ 18 UNITS/KG/HR 16.329 mls/hr IV .[id number] [facility] Rx#: [id number] Oral 118 Other: Voiding Method Toilet Toilet # Voids 1 3 Weight 92 kg No acute distress, oriented 3. Currently on room air. Saturations are 96-98%. HEENT examination is grossly unremarkable. Neck supple. Full range of motion. No adenopathy thyromegaly or neck vein distention. Cardiovascular examination reveals regular rhythm rate. S1-S2 normal. No S3 or S4. No discernible murmur noted. Heart rate 77 bpm. Lungs reveal clear breath sounds. Breath sounds are equal bilaterally. No adventitious lung sounds including wheezes rhonchi or crackles. No pleural friction rub noted. Abdomen soft bowel sounds are heard. No masses or tenderness. Extremities are intact. No cyanosis or clubbing. Left leg minimally swollen compared to the right. Skin is without rash or lesion. Neurologic examination is brief but nonfocal. Results - Laboratory Findings CBC and BMP: 06/15/21 04:22 06/15/21 04:22 PT/INR, D-dimer PT 12.0 sec (9.0-12.0) 06/14/21 16:43 INR 1.1 (<1.2) 06/14/21 16:43 Abnormal lab findings: Abnormal Labs 06/14/21 06/14/21 06/15/21 16:43 21:22 04:22 APTT 171.2 H* 75.6 H 65.0 H - Diagnostic Findings Chest x-ray: image reviewed CT scan - chest: image reviewed Assessment and Plan Assessment: Pulmonary infarction, left lung, in a patient with bilateral lower lobe segmental and subsegmental pulmonary emboli and left lower extremity DVT. Left tibial plateau fracture. History of rheumatoid arthritis. Recent history of coronavirus infection. Lifelong nonsmoker. Plan: Plan dated 06/15/2021. The patient can be placed on a factor X a inhibitor. The patient had a provoked pulmonary embolus some. The likely trigger was the left tibial plateau fracture. In addition, the patient recently had a coronavirus infection. Nonetheless, the patient should be treated for 3 months. I did explain what the blood thinners. Currently, he is on IV heparin. Interestingly, this patient has a classic Charles's Hump, in the left lung, consistent with pulmonary infarction. The patient's currently on room air. No reason to keep him in the hospital till Thursday. The patient should follow with me after discharge. In 8- 10 weeks, he'll need a follow-up CT angiogram. Time with Patient: Greater than 30
--- NOTE | 2021-06-15 18:40 | PN ---
PROGRESS NOTE DATE OF SERVICE: 06/15/2021 This 50-year-old gentleman admitted with acute pulmonary embolism and DVTs is on IV heparin. No chest pain. No palpitations. No fever. PHYSICAL EXAMINATION: Pulse is 101, blood pressure 152/84 respiration 18. CHEST: Clear to auscultation. CARDIOVASCULAR: S1, S2, muffled. No S3, no S4, ABDOMEN: Soft. LEGS: Left knee is painful, some swelling present. LABS: Reviewed. ASSESSMENT: 1. Acute bilateral pulmonary embolism with pulmonary infarct. 2. Acute deep vein thrombosis of the left leg. 3. History of recent left tibial plateau fracture. 4. Fibromyalgia. RECOMMENDATION: Recommend to continue current management and continue symptomatic treatment. Continue with anticoagulation. Closely follow with Pulmonary and as well as Hematology/Oncology. Hematology/Oncology workup as an outpatient. Prognosis guarded. Further recommendations to follow. MMODL / REVAN: [id number] /
--- NOTE | 2021-06-15 22:01 | CONS ---
CONSULTATION DATE OF SERVICE: June 15, 2021. REASON FOR CONSULTATION: Deep venous thrombosis and pulmonary embolus. CHIEF COMPLAINT: Swollen leg. HISTORY OF PRESENT ILLNESS: Don is a pleasant 50-year-old gentleman who had a fracture of his tibia about a month ago, has been managed conservatively, wearing a brace and also using crutches. However, he presented initially with some swelling in his left lower extremity. Subsequently, he developed a pleuritic type chest pain. Led to an ultrasound of his leg, which was positive for acute DVT involving the proximal femoral vein. Subsequently had CT scan angiogram of the chest. The patient was referred to the hospital and he did have a CT scan of the chest which revealed bilateral segmental and subsegmental lower extremity pulmonary emboli, so the patient ended up being admitted to the hospital and started on IV heparin. The patient feels better now. He continues to have some swelling in his legs. He denies any previous history of deep venous thrombosis or pulmonary emboli. He is otherwise relatively healthy. He continues to have some pleuritic type chest pain. Of note, the patient recently also had munoz virus infection. But he is an otherwise relatively healthy and active gentleman. He feels fine otherwise. Denies any fever, chills, nausea, vomiting. No hemoptysis, no melena, hematochezia, hematuria, hemoptysis hematemesis or epistaxis. No skin rash or itching. He has no fever, night sweats, or weight loss. PAST MEDICAL HISTORY: Otherwise negative. FAMILY HISTORY: Negative for deep venous thrombosis or pulmonary emboli. HOME MEDICATION: He does not take any medication at home. ALLERGIES: There is no known drug allergy. REVIEW OF SYSTEMS: As stated above in the history of present illness. PHYSICAL EXAMINATION: He is alert, oriented x3. No acute distress. Well developed, well nourished. His temperature 98, afebrile, pulse is 101, respiration 18, blood pressure 152/84, pulse ox 97 percent on room air. HEENT: Normocephalic, atraumatic. No icterus. NECK: Supple. No jugular venous distention. CHEST: Equal expansion bilaterally. LUNGS: Clear to auscultation. HEART is regular rate and rhythm. ABDOMEN: Soft. No obvious organomegaly or masses. No tenderness or ascites. Bowel sounds present. EXTREMITIES: He has 1+ edema in the left lower extremity. LYMPHATICS: No peripherally enlarged cervical or supraclavicular lymph nodes. MUSCULOSKELETAL: Moving all extremities appropriately. No percussion tenderness detected over his spine, sternum. LABORATORY DATA: WBC of 6.4, hemoglobin 13.5, hematocrit 41.7, platelets are 223. Sodium 140, potassium 4.0, chloride 104. LFTs are within normal limits. IMPRESSION: Left lower extremity deep venous thrombosis and bilateral pulmonary emboli complicated by pulmonary infarction. This is likely provoked from his recent fracture of the left tibia and he has wearing brace. Also recently had COVID infection as well. He has no prior personal history of deep venous thrombosis or pulmonary emboli and no family history of such. RECOMMENDATION: 1. The patient could be switched to Doac and discharged home. 2. He will require a minimum of 3 months of anticoagulation. 3. We could consider hypercoagulability workup in the outpatient setting. However, at this time, it is not going to alter medical management. The above was discussed in detail with the patient. I have answered all her questions. Thank you very much for asking me to participate in the care of this nice gentleman. MMODL / IJN: [id number] /
[2021-06-16] MEDS: SODIUM CHLORIDE 0.9% 1,000 ML IV SCH ×2 (06:00→20:35)
[2021-06-16] MEDS: PANTOPRAZOLE 40 MG TABLET PO SCH (06:00)
[2021-06-16] MEDS: APIXABAN 5 MG TAB PO SCH ×2 (12:15→20:35)
--- NOTE | 2021-06-16 13:15 | P.PN ---
Subjective Progress Note Date: 06/16/21 50-year-old male who was seen in the emergency department yesterday, June 14. He has a history of recent left tibial plateau fracture, this pain managed medically by one of the orthopedic surgeons. More recently, he complained of 2 things including some left-sided chest pain or chest discomfort. He apparently noticed some swelling in his left lower extremity. When he saw the orthopedic surgeon on the day of his admission to the hospital, he was sent for an ultrasound to evaluate for DVT. He apparently had a left femoral DVT. Because of worsening shortness of breath, and inability to take a deep breath without pain, the patient was sent for CTA which showed pulmonary embolism, bilaterally, in the segmental and subsegmental branches of the pulmonary arteries. In addition, on the left side, the patient had a classic Charles's Hump, consistent with pulmonary infarction. The patient is currently not short of breath. He is on room air. He is receiving IV heparin. I spent a great deal time talking to him about the fact that he had a provoked pulmonary embolism, should be treated for 3 months. The trigger in his case was the left tibial plateau fracture. The CTA was negative for right heart strain. The patient could be placed on a factor X a inhibitor, and discharged. He is cu rrently very stable. White count 6.4, he will 13.5, hematocrit 41.7, platelet count 223,000. PTT is 65. Sodium 140, potassium 4, chlorides 104, CO2 28, anion gap 8, BUN 13, creatinine 0.88. Chest x-ray shows a small focal opacity in the left lung base. CAT scan shows bilateral segmental and subsegmental lower lobe pulmonary emboli. The patient is CTA 06/16/2021 in follow-up on the selective care unit. He is sitting up in bed. Awake and alert in no acute distress. Maintaining good O2 saturations in the 90s on room air. No shortness of breath cough or congestion. No chest wall discomfort. No pleuritic pain. No hemoptysis. Maintaining good O2 saturations in the 90s on room air. He is afebrile. Hemodynamically stable. He remains on a heparin drip. Objective - Vital Signs Vital signs: Vital Signs Temp 98.1 F 06/16/21 12:27 Pulse 72 06/16/21 12:27 Resp 18 06/16/21 12:27 BP 154/97 06/16/21 12:27 Pulse Ox 97 06/16/21 12:27 Intake & Output 06/15/21 06/16/21 06/16/21 17:59 06:59 18:59 Intake Total 120 Balance 120 Weight Intake: Intake, IV Titration Amount Heparin Sod,Pork in 0.45% NaCl 25,000 unit In 0.45 % NaCl 1 250ml.bag @ 18 UNITS/KG/HR 16.329 mls/hr IV .[id number] [facility] Rx#: [id number] Oral 120 Other: Voiding Method Toilet # Voids 2 # Bowel Movements 0 - Exam GENERAL EXAM: Alert, very pleasant 50-year-old male patient, on room air, comfortable in no apparent distress. HEAD: Normocephalic. EYES: Normal reaction of pupils, equal size. NOSE: Clear with pink turbinates. THROAT: No erythema or exudates. NECK: No masses, no JVD. CHEST: No chest wall deformity. LUNGS: Equal air entry with no crackles, wheeze, rhonchi or dullness. CVS: S1 and S2 normal with no audible murmur, regular rhythm. ABDOMEN: No hepatosplenomegaly, normal bowel sounds, no guarding or rigidity. SPINE: No scoliosis or deformity SKIN: No rashes CENTRAL NERVOUS SYSTEM: No focal deficits, tone is normal in all 4 extremities. EXTREMITIES: There is no peripheral edema. No clubbing, no cyanosis. Peripheral pulses are intact. - Labs CBC & Chem 7: 06/15/21 04:22 06/15/21 04:22 Labs: Abnormal Lab Results - Last 24 Hours (Table) 06/16/21 Range/Units 04:49 APTT 48.4 H (22.0-30.0) sec Assessment and Plan Assessment: 1 Pulmonary infarction, left lung, in a patient with bilateral lower lobe segmental and subsegmental pulmonary emboli and left lower extremity DVT. 2 Left tibial plateau fracture. 3 History of rheumatoid arthritis. 4 Recent history of coronavirus infection. 5 Lifelong nonsmoker. Plan: The patient was seen and evaluated He will be transitioned to Eliquis Stable and on room air Cleared for discharge from the pulmonary standpoint Follow-up in our office in 1-2 weeks' Plan will be for follow-up CT angiogram in 3 months Provoked PE/DVT, anticoagulated for 3 months I have personally seen and examined the patient, performed the documentation and the assessment and plan as written. Number of minutes spent on the visit: 10.
--- NOTE | 2021-06-16 13:45 | PN ---
PROGRESS NOTE oDn is a 50-year-old gentleman who was admitted to the hospital with DVT and pulmonary embolism. His echocardiogram showed normal LV function without any evidence of RV strain. This morning he is feeling good. On exam, vital signs are stable. There is no jugular venous distention. Chest exam reveals good air entry bilaterally. Heart exam reveals first and second heart sounds. No gallop. No murmur. Abdomen is soft. Exam of extremities reveals left leg edema, but that has improved from yesterday. Medications include Eliquis. ASSESSMENT: Left leg deep vein thrombosis with pulmonary embolism. There is no evidence of RV strain either on the echo or the CAT scan. The patient is doing well. He has been switched from heparin to Eliquis. Hopefully, home tomorrow. MMODL / IJN: [id number] /
--- NOTE | 2021-06-16 18:38 | PN ---
PROGRESS NOTE DATE OF SERVICE: 06/16/2021 This 50-year-old gentleman, admitted with pulmonary embolism, also had DVT. The patient had recent left knee trauma. No chest pain. No palpitation. PHYSICAL EXAMINATION: Pulse 72, blood pressure 150/97, respiration 18. Chest: Clear to auscultation. Abdomen: Soft, nontender. Nervous system: No focal deficits. Exam of the left leg minimal swelling. LABS: APTT noted. ASSESSMENT: 1. Acute bilateral pulmonary embolism with pulmonary infarct. 2. Acute deep vein thrombosis of the left leg. 3. History of recent left tibial plateau fracture. 4. Fibromyalgia. RECOMMENDATIONS AND DISCUSSION: I recommend to continue current management. Symptomatic treatment. Check pharmacy clearance. Prognosis guarded. Further recommendations to follow. MMTRACEEL / REVAN: [id number] / MTDD
[2021-06-17 02:37] VITALS: PULSE 91
[2021-06-17] MEDS: APIXABAN 5 MG TAB PO SCH (07:34)
[2021-06-17] MEDS: SODIUM CHLORIDE 0.9% 1,000 ML IV SCH (07:34)
[2021-06-17] MEDS: PANTOPRAZOLE 40 MG TABLET PO SCH (07:34)
[2021-06-17 07:58] VITALS: BP 143/76; RESP 18; TEMP 98.5
--- NOTE | 2021-06-17 12:38 | P.PN ---
Subjective Progress Note Date: 06/17/21 On today's evaluation of 06/17/2021, the patient is doing well. No specific complaints. He is off IV heparin and the patient is currently on anticoagulation with Eliquis per protocol. No complaints been no chest pain. No hemoptysis. No pleurisy. No shortness of breath. Pulse ox to 94% on room air oxygen. He is using a crutch regarding a tibial plateau fracture. His echocardiogram was also completed and the patient was found to have a preserved LV function with a normal ejection fraction. No significant pulmonary hypertension. No valvular heart disease. Objective - Vital Signs Vital signs: Vital Signs Temp 98.5 F 06/17/21 07:09 Pulse 91 06/17/21 07:09 Resp 18 06/17/21 07:09 BP 143/76 06/17/21 07:09 Pulse Ox 94 L 06/17/21 07:09 Intake & Output 06/16/21 06/17/21 06/17/21 18:59 06:59 18:59 Intake Total 540 1100 Balance 540 1100 Intake: Intake, IV Titration 900 Amount Sodium Chloride 0.9% 1, 900 000 ml @ 75 mls/hr IV . [id number] [facility] Rx#:[id number] Oral 540 200 Other: Voiding Method Toilet Toilet # Voids 3 3 1 # Bowel Movements 0 - Exam GENERAL EXAM: Alert, very pleasant 50-year-old male patient, on room air, comfortable in no apparent distress. HEAD: Normocephalic. EYES: Normal reaction of pupils, equal size. NOSE: Clear with pink turbinates. THROAT: No erythema or exudates. NECK: No masses, no JVD. CHEST: No chest wall deformity. LUNGS: Equal air entry with no crackles, wheeze, rhonchi or dullness. CVS: S1 and S2 normal with no audible murmur, regular rhythm. ABDOMEN: No hepatosplenomegaly, normal bowel sounds, no guarding or rigidity. SPINE: No scoliosis or deformity SKIN: No rashes CENTRAL NERVOUS SYSTEM: No focal deficits, tone is normal in all 4 extremities. EXTREMITIES: There is no peripheral edema. No clubbing, no cyanosis. Peripheral pulses are intact. - Labs CBC & Chem 7: 06/15/21 04:22 06/15/21 04:22 Assessment and Plan Plan: 1 Pulmonary infarction, left lung, in a patient with bilateral lower lobe segmental and subsegmental pulmonary emboli and left lower extremity DVT. 2 Left tibial plateau fracture. 3 History of rheumatoid arthritis. 4 Recent history of coronavirus infection. 5 Lifelong nonsmoker. Plan: He will be transitioned to Eliquis Stable and on room air Cleared for discharge from the pulmonary standpoint The patient will be continuing and to coagulation somewhere between 3 months to 6 months Follow-up in our office in 1-2 weeks'
--- NOTE | 2021-06-17 14:42 | P.PN ---
Subjective Progress Note Date: 06/17/21 Principal diagnosis: LLE DVT/bilateral PE In f/u today pt has been started on eliquis, tolerating well, no bleeding to report. He cont to have some rib pain on the left with deep inspiration, nothing severe Objective - Vital Signs Vital signs: Vital Signs Temp 98.5 F 06/17/21 07:09 Pulse 91 06/17/21 07:09 Resp 18 06/17/21 07:09 BP 143/76 06/17/21 07:09 Pulse Ox 94 L 06/17/21 07:09 Intake & Output 06/16/21 06/17/21 06/17/21 18:59 06:59 18:59 Intake Total 540 1100 Balance 540 1100 Intake: Intake, IV Titration 900 Amount Sodium Chloride 0.9% 1, 900 000 ml @ 75 mls/hr IV . [id number] [facility] Rx#:[id number] Oral 540 200 Other: Voiding Method Toilet Toilet # Voids 3 3 1 # Bowel Movements 0 - Constitutional General appearance: Present: average body habitus, cooperative, no acute distress - EENT Eyes: Present: anicteric sclerae, EOMI ENT: Present: hearing grossly normal - Respiratory Details: resp even and unlabored - Integumentary Integumentary: Present: normal - Neurologic Neurologic: Present: CNII-XII intact - Musculoskeletal Musculoskeletal Comment(s): left leg in brace Musculoskeletal: Present: strength equal bilaterally - Psychiatric Psychiatric: Present: A&O x's 3, appropriate affect, intact judgment & insight - Labs CBC & Chem 7: 06/15/21 04:22 06/15/21 04:22 Assessment and Plan (1) DVT (deep venous thrombosis) Status: Acute Priority: High Code(s): I82.409 - ACUTE EMBOLISM AND THOMBOS UNSP DEEP VN UNSP LOWER EXTREMITY SNOMED Code(s): 479641443 (2) Pulmonary embolism Status: Acute Priority: High Code(s): I26.99 - OTHER PULMONARY EMBOLISM WITHOUT ACUTE COR PULMONALE SNOMED Code(s): 38649179 Plan: LLE DVT and bilateral PE. Provoked. DVT wwith PE, recommendation is 6mo anticoagulation. Since he had recent covid infection, lupus anticoagulant, beta 2 glycoprotein and cardiolipin ab ordered-if positive recommendation will be for LMWH or coumadin for 6 mo. F/U with Hematology for hypercoag work up
[2021-06-17 20:27] LABS: Cardiolipin Ab IgG Interp NEGATIVE (NEGATIVE); Cardiolipin Ab IgM Interp NEGATIVE (NEGATIVE); Cardiolipin IgA Antibody <2.0 U/mL; Cardiolipin IgM Antibody <1.5 U/mL
[2021-06-18 14:35] LABS: APTT 57 Sec(s) (<43); APTT 1:1 Mix 43 Sec(s) (<43); DRVVT 1:1 Mix 50 Sec(s) (<44); DRVVT Confirmation Negative (Negative); Dilute Russell Viper Venom 72 Sec(s) (<44)
== END 2021-06-17 14:22 | disposition home or self-care (01) | DRG 299 ==
LOC: EC 11:56 → 3SCARD 15:33 → OBSVTOIN 06-15 07:35 → 4SSUR 06-16 19:48
PROVIDERS: ADMIT Hospitalist; ATTEND Hospitalist
DX: I82.412 Acute embolism and thrombosis of left femoral vein (principal); I26.93 Single subsegmental thrombotic pulmonary embolism without acute cor pulmonale; S82.142A Displaced bicondylar fracture of left tibia, initial encounter for closed fracture; R47.01 Aphasia; I31.3 Pericardial effusion (noninflammatory); I81 Portal vein thrombosis; R07.89 Other chest pain; I08.1 Rheumatic disorders of both mitral and tricuspid valves; R09.02 Hypoxemia; E03.9 Hypothyroidism, unspecified; M06.9 Rheumatoid arthritis, unspecified; M79.7 Fibromyalgia; Z86.16 Personal history of COVID-19; Z82.49 Family history of ischemic heart disease and other diseases of the circulatory system; Z82.0 Family history of epilepsy and other diseases of the nervous system; Z83.49 Family history of other endocrine, nutritional and metabolic diseases; Z79.890 Hormone replacement therapy
CPT/HCPCS: 36415; 71045; 71275; 80048; 80053; 84484; 84550; 85025; 85598; 85610; 85613; 85730; 85732; 86146; 86147; 93005; 93306; 96365; 96366; 99291

== ENCOUNTER → 2021-06-14 | Outpatient (CLI) | payer BC ==
--- NOTE | 2021-06-14 11:52 | US ---
EXAMINATION TYPE: US venous doppler duplex LE LT DATE OF EXAM: 06/14/2021 11:40 AM COMPARISON: NONE CLINICAL HISTORY: I80.9 PHLEBITIS AND THROMBOPHLEBITIS. Knee trauma x 1 month ago. SIDE PERFORMED: Left TECHNIQUE: The lower extremity deep venous system is examined utilizing real time linear array sonog hu with graded compression, doppler sonography and color-flow sonography. VESSELS IMAGED: Common Femoral Vein Deep Femoral Vein Greater Saphenous Vein * Femoral Vein Popliteal Vein Small Saphenous Vein * Proximal Calf Veins (* superficial vessels) Left Leg: Positive for DVT in proximal FV with internal echoes seen. Duplicate patent femoral vein visualized. IMPRESSION: Findings compatible with DVT left lower extremity as noted above.
== END | disposition home or self-care (01) ==
LOC: RADUSWWP 11:15
PROVIDERS: ATTEND Psychiatry & Neurology Psychiatry
DX: I82.412 Acute embolism and thrombosis of left femoral vein (principal)

== ENCOUNTER 2021-09-16 08:41 | Emergency (ER) | payer BC ==
[2021-09-16] MEDS ORDERED: SODIUM CHLORIDE 0.9% 500 ML 500 ML IV STA (09:09)
[2021-09-16] MEDS ORDERED: SODIUM CHLORIDE 0.9% 1,000 ML IV STA (09:09)
[2021-09-16] MEDS ORDERED: ONDANSETRON 4 MG/2 ML VIAL IVP STA (09:09)
[2021-09-16] MEDS ORDERED: HYDROmorphone 0.5 MG/0.5 ML SYRINGE IVP STA ×2 (09:09→09:55)
[2021-09-16 10:01] LABS: ALT 18 U/L (4-49); AST 27 U/L (17-59); African American GFR (CKD) >90 (>60 ml/min/1.73 sqM); Albumin 4.4 g/dL (3.5-5.0); Alkaline Phosphatase 62 U/L (38-126); Amylase 45 U/L (30-110); Anion Gap 11 mmol/L; Blood Urea Nitrogen 11 mg/dL (9-20); Calcium 8.9 mg/dL (8.4-10.2); Carbon Dioxide 24 mmol/L (22-30); Chloride 106 mmol/L (98-107); Glucose 117 mg/dL (74-99); Lipase 101 U/L (23-300); Non-African American GFR(CKD) 87 (>60 ml/min/1.73 sqM); Potassium 4.2 mmol/L (3.5-5.1); Sodium 141 mmol/L (137-145); Total Bilirubin 0.3 mg/dL (0.2-1.3); Total Protein 6.8 g/dL (6.3-8.2)
--- NOTE | 2021-09-16 10:39 | CT ---
EXAMINATION TYPE: CT abdomen pelvis wo con DATE OF EXAM: 09/16/2021 COMPARISON: None available HISTORY: Right flank pain, hematuria CT DLP: 755.1 mGycm Automated exposure control for dose reduction was used. TECHNIQUE: Helical acquisition of images was performed from the lung bases through the pelvis. FINDINGS: LUNG BASES: Lingular subsegmental pulmonary atelectasis. LIVER/GB: No significant abnormality is appreciated. PANCREAS: No significant abnormality is seen. SPLEEN: No significant abnormality is seen. ADRENALS: No significant abnormality is seen. KIDNEYS: 3 mm obstructing calculus is seen at the upper to midportion of the right ureter, causing mi ld proximal right-sided hydroureter and hydronephrosis. Right perinephric and right periureteric fat stranding are noted. No other definite radiodense urinary calculi. No left-sided hydroureter and hydr onephrosis. FREE AIR: No free air is visualized RETROPERITONEAL ADENOPATHY: None visualized REPRODUCTIVE ORGANS: Enlarged prostate with large prostatic concretion. Unremarkable seminal vesicles . URINARY BLADDER: No significant abnormality is seen. PELVIC ADENOPATHY: No pathologically enlarged pelvic lymph nodes. OSSEOUS STRUCTURES: Subtle sclerotic foci are seen in the posterior aspect of the right iliac bone w ithout bone destruction, possibly benign. Degenerative changes at L5-S1 level. BOWEL: No significant abnormality is seen. OTHER: No sizable ascites. Small bilateral fat-containing inguinal hernias. Fat-containing umbilical hernia. IMPRESSION: 3 mm obstructing stone at the upper to mid third of the right ureter as described above. Associated i nfection can't be excluded, please correlate clinically and with urinalysis results. Other findings a s described above.
--- NOTE | 2021-09-16 11:25 | ED ---
Abdominal Pain HPI - General Chief Complaint: Abdominal Pain Stated Complaint: near syncope Time Seen by Provider: 09/16/21 08:58 Source: patient, RN notes reviewed Mode of arrival: ambulatory Limitations: no limitations - History of Present Illness Initial Comments: 51-year-old male presents emergency Department with chief complaint right flank pain. Patient states he noticed some blood in his urine patient states that he started having severe right scrotal right flank pain. States nothing makes the pain feel better or worse or history kidney stones he is concern result of blood secondary to having be placed on Xarelto 6 months ago. Denies any rectal bleeding denies any fevers chills dysuria. - Related Data Home Medications Medication Instructions Recorded Confirmed Apixaban [Eliquis] 5 mg PO BID 09/16/21 09/16/21 Previous Rx's Medication Instructions Recorded HYDROcodone/APAP 5-325MG [[place] 5] 1 each PO Q6HR PRN #12 tab 09/16/21 Ondansetron Odt [Zofran Odt] 4 mg PO Q8HR PRN #10 tab 09/16/21 Tamsulosin [Flomax] 0.4 mg PO DAILY #7 cap 09/16/21 Allergies Allergy/AdvReac Type Severity Reaction Status Date / Time No Known Allergies Allergy Verified 09/16/21 10:14 Review of Systems ROS Statement: Those systems with pertinent positive or pertinent negative responses have been documented in the HPI. ROS Other: All systems not noted in ROS Statement are negative. Past Medical History Past Medical History: Fibromyalgia, Thyroid Disorder Additional Past Medical History / Comment(s): L tibial plateau fracture being treated medically, past hypothyroid/no longer needs to take medication. History of Any Multi-Drug Resistant Organisms: None Reported Past Surgical History: No Surgical Hx Reported Additional Past Surgical History / Comment(s): EGD, colonoscopy, capsule endoscopy Past Anesthesia/Blood Transfusion Reactions: No Reported Reaction Past Psychological History: No Psychological Hx Reported Smoking Status: Never smoker Past Alcohol Use History: None Reported Past Drug Use History: None Reported - Past Family History Father Family Medical History: Dementia, Vascular Disorder Additional Family Medical History / Comment(s): AAA repair Mother Family Medical History: Hypertension, Musculoskeletal Disorder, Neurologic Disorder Additional Family Medical History / Comment(s): Parkinson's, Reynaulds General Exam Limitations: no limitations General appearance: alert, in no apparent distress Head exam: Present: atraumatic, normocephalic, normal inspection Eye exam: Present: normal appearance, PERRL, EOMI. Absent: scleral icterus, conjunctival injection, periorbital swelling Neck exam: Present: normal inspection. Absent: tenderness, meningismus, lymphadenopathy Respiratory exam: Present: normal lung sounds bilaterally. Absent: respiratory distress, wheezes, rales, rhonchi, stridor Cardiovascular Exam: Present: regular rate, normal rhythm, normal heart sounds. Absent: systolic murmur, diastolic murmur, rubs, gallop, clicks GI/Abdominal exam: Present: soft, normal bowel sounds. Absent: distended, tenderness, guarding, rebound, rigid Back exam: Present: CVA tenderness (R). Absent: CVA tenderness (L) Course Vital Signs 09/16/21 08:50 Pulse Rate 74 Respiratory 20 Rate Blood Pressure 137/71 O2 Sat by Pulse 100 Oximetry Medical Decision Making - Medical Decision Making 51-year-old male presented for right flank pain. Patient has a 3 mm stone. Patient will be discharged in stable condition return parameters were discussed. - Lab Data Result diagrams: 09/16/21 09:38 Lab Results 09/16/21 Range/Units 09:38 Sodium 141 (137-145) mmol/L Potassium 4.2 (3.5-5.1) mmol/L Chloride 106 (98-107) mmol/L Carbon Dioxide 24 (22-30) mmol/L Anion Gap 11 mmol/L BUN 11 (9-20) mg/dL Creatinine 1.01 (0.66-1.25) mg/dL Est GFR (CKD-EPI)AfAm >90 (>60 ml/min/1.73 sqM) Est GFR (CKD-EPI)NonAf 87 (>60 ml/min/1.73 sqM) Glucose 117 H (74-99) mg/dL Calcium 8.9 (8.4-10.2) mg/dL Total Bilirubin 0.3 (0.2-1.3) mg/dL AST 27 (17-59) U/L ALT 18 (4-49) U/L Alkaline Phosphatase 62 (38-126) U/L Total Protein 6.8 (6.3-8.2) g/dL Albumin 4.4 (3.5-5.0) g/dL Amylase 45 (30-110) U/L Lipase 101 (23-300) U/L Disposition Clinical Impression: Right ureteral calculus Disposition: HOME SELF-CARE Condition: Stable Instructions (If sedation given, give patient instructions): Kidney Stones (ED) Additional Instructions: Please return to the Emergency Department if symptoms worsen or any other concerns. Prescriptions: Tamsulosin [Flomax] 0.4 mg PO DAILY #7 cap HYDROcodone/APAP 5-325MG [[place] 5] 1 each PO Q6HR PRN #12 tab PRN Reason: Pain Ondansetron Odt [Zofran Odt] 4 mg PO Q8HR PRN #10 tab PRN Reason: Nausea Is patient prescribed a controlled substance at d/c from ED?: Yes Referrals: Roberto Jewell DO [Primary Care Provider] - 1-2 days Barak Kemp MD [STAFF PHYSICIAN] - 1-2 days Time of Disposition: 11:25
[2021-09-16 11:55] LABS: Appearance,Urine Cloudy (Clear); Bilirubin,Urine Negative (Negative); Blood,Urine Large (Negative); Color,Urine Yellow; Glucose,Urine (UA) Negative (Negative); Ketones,Urine Negative (Negative); Leukocyte Esterase,Urine Negative (Negative); Mucus,Urine Occasional /hpf; Nitrite,Urine Negative (Negative); Protein,Urine Negative (Negative); RBC,Urine 158 /hpf (0-5); Urobilinogen,Urine <2.0 mg/dL (<2.0); WBC,Urine 3 /hpf (0-5)
[2021-09-16 12:07] VITALS: BP 135/85; PULSE 75; RESP 18; TEMP 97.2
== END 2021-09-16 11:50 | disposition home or self-care (01) ==
LOC: EC 08:41
DX: N13.2 Hydronephrosis with renal and ureteral calculous obstruction (principal); R55 Syncope and collapse
CPT/HCPCS: 36415; 80053; 82150; 83690; 81001; 74176; 99284; 96374; 96375; 96361; J2405; J1170

== ENCOUNTER → 2021-10-04 | Outpatient (CLI) | payer BC ==
--- NOTE | 2021-10-06 09:07 | CT ---
EXAMINATION TYPE: CT angio chest CT DLP: 553 mGycm, Automated exposure control for dose reduction was used. DATE OF EXAM: 10/04/2021 5:40 PM COMPARISON: CT chest 06/14/2021 CLINICAL INDICATION:Male, 51 years old with history of Pulmonary embolism I26.99; PE TECHNIQUE/CONTRAST: CTA scan of the thorax is performed with IV Contrast, patient injected with 100ml mL of Isovue 370, p ulmonary embolism protocol. MIP images are created and reviewed. FINDINGS: Pulmonary Artery: There is no evidence for a filling defect within the pulmonary vasculature to sugge st acute pulmonary embolism. Resolution of prior pulmonary emboli. The pulmonary artery is of normal size. Lungs/Pleura: No evidence of focal consolidation, pleural effusion or pneumothorax. Streaky atelectas is changes in the lingula are unchanged. Airway: Large airways are patent. Heart: Heart is within normal limits for size.. Vasculature: No evidence of aortic aneurysm. Mediastinum: No gross evidence of adenopathy. Musculoskeletal: No acute osseous abnormalities Soft Tissues: Unremarkable. Lower neck: No significant findings. Upper Abdomen: No significant findings. IMPRESSION: Resolution of prior pulmonary emboli. No new pulmonary emboli are visualized.
== END | disposition home or self-care (01) ==
LOC: RADCTMAIN 17:07
PROVIDERS: ATTEND Internal Medicine Critical Care Medicine
DX: I26.99 Other pulmonary embolism without acute cor pulmonale (principal)
CPT/HCPCS: 71275; Q9967

== ENCOUNTER → 2021-10-10 | Outpatient (CLI) | payer BC ==
--- NOTE | 2021-10-10 10:02 | XR ---
KUB HISTORY: N 20.1, calculus Frontal KUB and [address] scan abdomen pelvis dated 09/16/2021 There are prostate calcifications noted. Previously noted right ureteral calculus is not seen with ce rtainty possibly due to small size, overlying bowel content. Lung bases are clear. Thoracic spondylos is is present. No evident bowel obstruction or pneumoperitoneum. IMPRESSION: Nonspecific findings.
== END | disposition home or self-care (01) ==
LOC: RADXRMAIN 08:47
PROVIDERS: ATTEND Urology
DX: N20.1 Calculus of ureter (principal)
CPT/HCPCS: 74018

== ENCOUNTER → 2021-10-22 | Outpatient (CLI) | payer BC ==
--- NOTE | 2021-10-22 09:04 | CT ---
EXAMINATION TYPE: CT abdomen pelvis wo con CT DLP: 795 mGycm, Automated exposure control for dose reduction was used. DATE OF EXAM: 10/22/2021 8:31 AM COMPARISON: CT abdomen pelvis 09/16/2021 CLINICAL INDICATION:Male, 51 years old with history of N20.1 CALCULUS OF URETER; Calculus of ureter. TECHNIQUE: Standard CT of the abdomen and pelvis without IV or oral contrast. Lack of IV or oral co ntrast limits evaluation of solid and hollow organ viscera. Coronal and sagittal reformats were perfo rmed. FINDINGS: LOWER CHEST: Lingular scarring noted. ABDOMEN LIVER: No suspicious lesion within the limitations of a noncontrast exam. GALLBLADDER AND BILE DUCTS: Unremarkable. PANCREAS: Unremarkable noncontrast appearance. SPLEEN: Unremarkable noncontrast appearance. ADRENAL GLANDS: Unremarkable noncontrast appearance. KIDNEYS AND URETERS: No evidence of hydronephrosis or renal calculus. Passage of previously seen righ t ureteral calculus. PELVIS BLADDER: Incompletely distended but grossly unremarkable. REPRODUCTIVE: Coarse calcifications of the prostate gland are identified. Prostate gland is prominent size. Unremarkable seminal vesicles. ABDOMEN & PELVIS STOMACH AND BOWEL: Small hiatal hernia, duodenum is unremarkable. No focal wall thickening or surroun ding inflammatory changes. The appendix is within normal limits. No evidence of bowel obstruction. PERITONEUM: No evidence of pneumoperitoneum or free fluid. VASCULATURE: No evidence of aortic aneurysm. MUSCULOSKELETAL: No acute osseous abnormalities. Stable sclerotic foci seen within the posterior aspe ct of the right iliac bone without bone destruction and possibly benign. Degenerative changes at L5-S 1. LYMPH NODES: No gross evidence for lymphadenopathy. SOFT TISSUE/ABDOMINAL WALL: Small fat filled periumbilical hernia. IMPRESSION: No obstructive uropathy with resolution of hydronephrosis. No renal calculi identified. Passage of pr eviously seen right ureteral calculus.
== END | disposition home or self-care (01) ==
LOC: RADCTMAIN 08:09
PROVIDERS: ATTEND Urology
DX: N20.1 Calculus of ureter (principal)
CPT/HCPCS: 74176

== ENCOUNTER → 2021-10-25 | Outpatient (CLI) | payer BC ==
--- NOTE | 2021-10-25 08:31 | US ---
EXAMINATION TYPE: US venous doppler duplex LE BI DATE OF EXAM: 10/25/2021 8:06 AM COMPARISON: 06/14/21 CLINICAL HISTORY: R22.42 SWELLING MASS LOWER LIMB R22.41. Trauma to the knee 2021 and developed a DVT in the left leg. Patient has been on blood thinners since May. SIDE PERFORMED: Bilateral TECHNIQUE: The lower extremity deep venous system is examined utilizing real time linear array sonog hu with graded compression, doppler sonography and color-flow sonography. VESSELS IMAGED: Common Femoral Vein Deep Femoral Vein Greater Saphenous Vein * Femoral Vein Popliteal Vein Small Saphenous Vein * Proximal Calf Veins (* superficial vessels) Right Leg: Negative for DVT Left Leg: Negative for DVT IMPRESSION: No evidence for DVT at this time.
== END | disposition home or self-care (01) ==
LOC: RADUSWWP 07:30
PROVIDERS: ATTEND Internal Medicine Critical Care Medicine
DX: R22.41 Localized swelling, mass and lump, right lower limb (principal); R22.42 Localized swelling, mass and lump, left lower limb
CPT/HCPCS: 93970

== ENCOUNTER → 2022-01-23 | Outpatient (CLI) | payer BC ==
--- NOTE | 2022-01-23 16:38 | P.SLEEP ---
History of Present Illness DATE: 01/23/2022 CONSULTATION/NEW PATIENT EVALUATION HISTORY OF PRESENT ILLNESS/SLEEP-WAKE EVALUATION: 51year old gentleman had been evaluated in the sleep center for possible obstructive sleep apnea hypopnea syndrome and for significant excessive daytime sleepiness. Patient had sleep study about 14 years ago in another institution which showed mild obstructive sleep apnea-hypopnea syndrome. She never had any treatment for sleep apnea. SLEEP SCHEDULE: Usually sleep schedule on weekdays from 10 PM until 5 AM, during days off from 10 PM until 7 AM. FALLING ASLEEP: Sometimes patient has problems with falling asleep, although no TV in bedroom. Positive history of restless leg symptoms. DURING SLEEP: Patient usually sleeps on the side position with snoring and multiple awakenings from sleep. He is using restroom 2 times per night. No history of hypnogogical hallucinations, sleep paralysis, or cataplexy. DURING THE DAY/WAKE STATE: In the morning patient wake up tired, falling asleep during the day, has problems with concentration, irritability, memory problems, depression, anxiety. Harmony sleepiness scale is and extremely high range of 16, while patient is on treatment with modafinil. Patient takes 1 nap during the day. PAST MEDICAL HISTORY: Hyperlipidemia, headaches, ADD, hypothyroidism in the p ast. PAST SURGICAL HISTORY: None. MEDICATIONS: Modafinil 200 mg in the morning and 100 mg at noontime, atomoxetine 80 mg once a day. SOCIAL HISTORY: Negative for smoking or using alcohol. FAMILY HISTORY: Hypertension, heart problems, cancer, mental illness. REVIEW OF SYSTEMS: Multiple awakenings from sleep, snoring, significant excessive daytime sleepiness. No fevers. No double vision. No recent chest pain. No shortness of breath. No abdominal pain. No bleeding episodes. No blood in urine. No seizure episodes. PHYSICAL EXAMINATION: GENERAL: A pleasant patient without any distress. VITAL SIGNS: BP 143/91 , HR 92 , RR 16 , weight 204.8 pounds, height 6 foot three-quarter inches, body mass index 27.1 . HEENT: PERRLA, EOMI. Evaluation of oropharynx showed tongue protrudes midline, low position of soft palate Mallampati 4, retrognathia. NECK: Supple. No JVD. Thyroid is not palpable. 16 inches in circumference. LUNGS: Clear to percussion and to auscultation. Good air exchange. No wheezing or rhonchi. HEART: S1, S2 regular. No murmurs, gallops or rubs. ABDOMEN: Soft and nontender. Bowel sounds are present. No organomegaly appreciated. EXTREMITIES: No clubbing or cyanosis. SENIOR CONSUMER INSIGHTS CONSULTANT: Awake, alert, and oriented x3. Cranial nerves 2 to 7 intact. There is no fasciculation or atrophy noted. No focal deficits observed. ASSESSMENT: 1. Snoring, multiple awakenings from sleep, extremely low position of soft palate Mallampati 4, retrognathia, history of documented mild obstructive sleep apnea hypopnea syndrome in the past. Obstructive sleep apnea- hypopnea syndrome. 2. Lifetime history of sleepiness. Extremely high Harmony Sleepiness Scale of 16, while patient is on modafinil dictated necessity to include hypersomnia and narcolepsy and differential diagnosis. 3 headaches. 4. Acid reflux. 5 hyperlipidemia. 6. Restless leg symptoms. 7. Possibly periodic limb movements. 8. History of hypothyroidism in the past. 9. History of ADD. PLAN: 1. Home sleep apnea test for evaluation of patient's breathing during sleep. 2. CPAP/BiPAP titration if sleep study confirms obstructive sleep apnea- hypopnea syndrome. 3. Preferable position during sleep on the side. 4. No driving if patient feels any sleepiness. Patient is aware of civil and criminal liability for unsafe driving. 5. Sleep hygiene with regular sleep time for at least 7.5-8 hours. 6. Multiple sleep latency test, if sleep test will be negative for obstructive sleep apnea-hypopnea syndrome. Thank you very much for referring this patient for consultation. Sincerely, Bunny Mcfarland MD, PhD, FAASM. Diplomat of [place] [employer], Sleep Medicine Board by [place] [employer] [place] [employer] Spray Booth Operator of [facility] [place] Past Medical History Past Medical History: Fibromyalgia, Thyroid Disorder Additional Past Medical History / Comment(s): L tibial plateau fracture being treated medically, past hypothyroid/no longer needs to take medication. History of Any Multi-Drug Resistant Organisms: None Reported Past Surgical History: No Surgical Hx Reported Additional Past Surgical History / Comment(s): EGD, colonoscopy, capsule endoscopy Past Anesthesia/Blood Transfusion Reactions: No Reported Reaction Past Psychological History: No Psychological Hx Reported Smoking Status: Never smoker Past Alcohol Use History: None Reported Past Drug Use History: None Reported - Past Family History Father Family Medical History: Dementia, Vascular Disorder Additional Family Medical History / Comment(s): AAA repair Mother Family Medical History: Hypertension, Musculoskeletal Disorder, Neurologic Disorder Additional Family Medical History / Comment(s): Parkinson's, Reynaulds Medications and Allergies Home Medications Medication Instructions Recorded Confirmed Type Apixaban [Eliquis] 5 mg PO BID 09/16/21 09/16/21 History HYDROcodone/APAP 5-325MG [Mazama 5] 1 each PO Q6HR PRN #12 tab 09/16/21 Rx Ondansetron Odt [Zofran Odt] 4 mg PO Q8HR PRN #10 tab 09/16/21 Rx Tamsulosin [Flomax] 0.4 mg PO DAILY #7 cap 09/16/21 Rx Allergies Allergy/AdvReac Type Severity Reaction Status Date / Time No Known Allergies Allergy Verified 09/16/21 10:14 Sleep Note - Sleep Note Sleep Note: Temperature: Pulse Rate: Respiratory Rate: Blood Pressure: SpO2: Height: Weight: BMI: Neck Circumference:
== END | disposition home or self-care (01) ==
LOC: SLEEP 15:43
PROVIDERS: ATTEND Internal Medicine
DX: G47.33 Obstructive sleep apnea (adult) (pediatric) (principal)
CPT/HCPCS: 99211

== ENCOUNTER → 2022-02-24 | Outpatient (CLI) | payer BC ==
--- NOTE | 2022-02-24 16:59 | US ---
EXAMINATION TYPE: US kidneys/renal and bladder DATE OF EXAM: 02/24/2022 COMPARISON: CT, XR CLINICAL HISTORY: N23 UNSPECIFIED RENAL COLIC. Renal colic. Hx of kidney stone. EXAM MEASUREMENTS: Right Kidney: 12.2 x 6.3 x 4.6 cm Left Kidney: 11.5 x 6.8 x 5.6 cm Right Kidney: Prominent renal pelvis. Measures upper limits versus minimally enlarged. Left Kidney: No hydronephrosis or masses seen Bladder: Appears anechoic. Bilateral Jets seen: Yes IMPRESSION: No evidence of renal mass or obstruction. Bilateral ureteral jets are present in the bladder. No evid ence of bladder mass.
== END | disposition home or self-care (01) ==
LOC: RADUSWWP 15:45
PROVIDERS: ATTEND Family Medicine
DX: Z08 Encounter for follow-up examination after completed treatment for malignant neoplasm (principal); N23 Unspecified renal colic; Z87.442 Personal history of urinary calculi
CPT/HCPCS: 76770

== ENCOUNTER → 2022-03-12 | Outpatient (CLI) | payer BC ==
--- NOTE | 2022-03-13 09:29 | XR ---
EXAMINATION TYPE: XR KUB DATE OF EXAM: 03/12/2022 COMPARISON: 10/10/2021 HISTORY: Pain TECHNIQUE: One view abdominal series FINDINGS: The osseous structures are intact. The bowel gas pattern is nonspecific. There are no suspicious calcifications overlying the renal outline. Calcifications in the pelvis comp atible with prostate calcifications. Punctate calcifications in the right hemipelvis. Vascular by rec ent CT scan IMPRESSION: 1. Nonspecific abdomen.
== END | disposition home or self-care (01) ==
LOC: RADXRMAIN 16:10
PROVIDERS: ATTEND Urology
DX: N20.1 Calculus of ureter (principal)
CPT/HCPCS: 74018

== ENCOUNTER → 2022-03-20 | Outpatient (CLI) | payer BC ==
--- NOTE | 2022-03-21 07:14 | CT ---
EXAMINATION TYPE: CT abdomen pelvis wo con DATE OF EXAM: 03/20/2022 HISTORY: poss kidney stones. bladder and testicle pain x2 months CT DLP: 1136 mGycm. Automated Exposure Control for Dose Reduction was Utilized. TECHNIQUE: CT scan of the abdomen and pelvis is performed without oral or IV contrast. COMPARISON: Prior CT abdomen and pelvis October 22, 2021 and older study September 16, 2021. Renal ultrasound February 24, 2022 FINDINGS: Within the limitations of a non-contrast study, the following observations are made. LUNG BASES: Stable focal lingular linear scarring. LIVER/GB: Contracted gallbladder current study. PANCREAS: No significant abnormality is seen. SPLEEN: No significant abnormality is seen. ADRENALS: No significant abnormality is seen. KIDNEYS: No renal stones or hydronephrosis identified on current study. No intraluminal calculus and poorly distended bladder. BOWEL: Debris-filled stomach suggests recent meal ingestion. No suspicious small or large bowel dilat ation. Slightly redundant sigmoid colon. Normal gas filled appendix from the cecum. GENITAL ORGANS: Mildly enlarged prostate gland with central calcifications bulging on bladder base. C orrelate for BPH. LYMPH NODES: No greater than 1cm abdominal or pelvic lymph nodes are appreciated. OSSEOUS STRUCTURES: Moderate to severe disc space narrowing with vacuum disc phenomenon at the lumbos acral junction. OTHER: Small fat-containing right inguinal hernia redemonstrated small to moderate-sized fat-containi ng umbilical hernia again seen. IMPRESSION: No renal stones or hydronephrosis is seen bilaterally. No suspicious new or acute finding to account for patient's symptoms of pain.
== END | disposition home or self-care (01) ==
LOC: RADCTMAIN 16:55
PROVIDERS: ATTEND Urology
DX: N20.1 Calculus of ureter (principal)
CPT/HCPCS: 74176

== ENCOUNTER → 2022-05-01 | Outpatient (CLI) | payer BC ==
--- NOTE | 2022-05-01 17:17 | P.PN ---
Subjective DATE: 05/01/2022 FOLLOW UP VISIT. Patient with obstructive sleep apnea hypopnea syndrome return to sleep center for follow-up visit. Recently patient had sleep study which documented obstructive sleep apnea hypopnea syndrome. Patient was initiated on PAP therapy and today is first visit after treatment was started. I explained results of sleep study to patient in details. Patient has mild obstructive sleep apnea hypopnea syndrome. With CPAP and he continued to feel symptoms of significant excessive daytime sleepiness.[place] Robert sleepiness scale is 17, which is in extremely high range and indicates sleepiness. Patient was able to use PAP equipment every night for the whole night. The patient does not have significant problems with the mask, PAP pressure and humidification. I checked information from PAP unit. PAP unit pressure 5-15, average 9.3 cm H2O. Usage is 90 % for more then 4 hours, average 4.9 hours per night. Leak is 26 l/m, which is in acceptable range. Apnea Hypopnea Index is 1.4, which is normal. MEDICATIONS:1. Modafinil 200 mg in the morning and 100 mg afternoon 2. Bupropion During physical exam: GENERAL: A pleasant patient without any distress. VITAL SIGNS: BP 154/82, HR 89, RR 14 , weight 206.8, temperature 97.5, oxygen saturation at room air 99% . HEENT: PERRLA, EOMI.low position of soft palate, Mallapati 4 . NECK: Supple. No JVD. LUNGS: Clear to percussion and to auscultation. Good air exchange. No wheezing or rhonchi. HEART: S1, S2 regular. ABDOMEN: Soft and nontender.[] EXTREMITIES: No clubbing or cyanosis. TACKING MACHINE OPERATOR: Awake, alert, and oriented x3. No focal deficit. Impressions: 1. Obstructive sleep apnea-hypopnea syndrome in mild range. Patient demonstrated good compliance with treatment, benefiting from treatment apnea- hypopnea index normalized, but patient continued to have awakenings from sleep while on CPAP and feels sleepiness during the day. 2. Patient continued to have symptoms of significant excessive daytime sleepiness while on treatment with CPAP and for normalization of his respiration on CPAP. Saint Robert Sleepiness Scale increased to 17. Differential diagnosis include additional diagnosis of narcolepsy type II and idiopathic hypersomnia.. 3. History of ADD. 4. History of hypothyroidism in the past. 5. History of hyperlipidemia. 6. History of headaches. 7. Restless leg symptoms. 8. Possibly periodic limb movements, which we were not able to assess during home sleep apnea test.. Plan: 1. Continue using PAP equipment every night for the whole night. 2. Multiple sleep latency test for objective evaluation symptoms of excessive daytime sleepiness. Test will be done on CPAP therapy and the previous night. During polysomnogram and we will also evaluate possibility for periodic limb movements. No modafinil and bupropion at the day of multiple sleep latency test. 3. PAP unit should stay lower then position of the head. 4. Advised patient to remove all remaining water from humidifier canister daily and make it dry after each usage. Refill canister with fresh distilled water before each usage. 5. Sleep hygiene with regular time in bed for at least 8 hours. 6. Precautions related to driving. No driving if feel any sleepiness. 7. I will maintain prescription for PAP supplies including mask, tube, filters. 8. Follow up visit after multiple sleep latency test. 9. Watching weight. Thank you very much for allowing me to participate in the management of your patient. Bunny Mcfarland MD, PhD, FAASM. Diplomat of [place] [employer], Sleep Medicine Board by [place] [employer] Optical Systems Engineer of [facility] [place]
== END ==
LOC: SLEEP 16:11
PROVIDERS: ATTEND Internal Medicine
DX: G47.33 Obstructive sleep apnea (adult) (pediatric) (principal); Z99.89 Dependence on other enabling machines and devices; G25.81 Restless legs syndrome; Z86.69 Personal history of other diseases of the nervous system and sense organs; Z86.39 Personal history of other endocrine, nutritional and metabolic disease; Z86.59 Personal history of other mental and behavioral disorders
CPT/HCPCS: 99212

== ENCOUNTER → 2022-07-17 | Outpatient (CLI) | payer BC ==
--- NOTE | 2022-07-17 16:38 | P.PN ---
Subjective DATE: 07/17/2022 FOLLOW UP VISIT. Patient returned to sleep center to discuss results of sleep studies and following plan. Patient had sleep study on nap Pap equipment with falling multiple sleep latency test for objective evaluation symptoms of significant excessive daytime sleepiness. Patient has mild obstructive sleep apnea hypopnea syndrome, was started on treatment with CPAP, but still continued to feel sleepiness during the day. I discussed results of sleep studies with patient in details. During CPAP titration night patient respiration was on full control, patient slept well with the high sleep efficiency of 94%. Multiple sleep latency test on the following day showed mean sleep latency 14.6 minutes, which is borderline to normal .[place] sleepiness scale is 13 today and indicates sleepiness. MEDICATIONS:1. Modafinil 200 mg in the morning and 200 mg afternoon 2. Bupropion During physical exam: GENERAL: A pleasant patient without any distress. VITAL SIGNS: BP 151/84, HR 93, RR 16 , weight 214.6, temperature 98.2, oxygen saturation at room air 95 . HEENT: PERRLA, EOMI. NECK: Supple. No JVD. LUNGS: Clear to percussion and to auscultation. Good air exchange. No wheezing or rhonchi. HEART: S1, S2 regular. ABDOMEN: Soft and nontender. EXTREMITIES: No clubbing or cyanosis. STONE TRIMMER: Awake, alert, and oriented x3. No focal deficit. Impressions: 1. Mild obstructive sleep apnea hypopnea syndrome on full control of his CPAP 2. Subjective excessive daytime sleepiness, which was not confirmed by multiple sleep latency test at that time. Mean sleep latency 14.6 minutes, which is practically normal following today's standards. Results of the test may depend from different factors, for example noise on the street.. 3. History of ADD. 4. History of hypothyroidism in the past. 5. History of hyperlipidemia. 6. History of headaches. Plan: 1. Patient will continue treatment with CPAP with low level of pressure. 2. Sleep hygiene with regular time in bed for at least 8 hours. 3. Precautions related to driving. No driving if feel any sleepiness. Patient is aware about civil and criminal liability for unsafe driving, promised to follow recommendations. 4. To repeat MSLT in one year Thank you very much for allowing me to participate in the management of your patient. Bunny Mcfarland MD, PhD, FAASM. Diplomat of [place] [employer], Sleep Medicine Board by [place] [employer] Cinder Block Maker of [facility] [place]
== END | disposition home or self-care (01) ==
LOC: SLEEP 15:58
PROVIDERS: ATTEND Internal Medicine
DX: G47.33 Obstructive sleep apnea (adult) (pediatric) (principal); Z86.39 Personal history of other endocrine, nutritional and metabolic disease; Z86.59 Personal history of other mental and behavioral disorders; Z99.89 Dependence on other enabling machines and devices; Z88.8 Allergy status to other drugs, medicaments and biological substances

== ENCOUNTER → 2023-02-11 | Outpatient (CLI) | payer BC ==
[2023-02-12 01:56] LABS: ALT 24 U/L (10-49); AST 24 U/L (14-35); Albumin 4.5 g/dL (3.8-4.9); Albumin/Globulin Ratio 2.05 Ratio (1.60-3.17); Alkaline Phosphatase 79 U/L (41-126); Bilirubin, Conjugated <0.20 mg/dL (0.20-0.40); Globulin 2.2 g/dL (1.6-3.3); Total Bilirubin <0.2 mg/dL (0.3-1.2); Total Protein 6.7 g/dL (6.2-8.2)
== END | disposition home or self-care (01) ==
LOC: LABWHC1 15:38
PROVIDERS: ATTEND Podiatrist Primary Podiatric Medicine
DX: B35.1 Tinea unguium (principal)
CPT/HCPCS: 36415; 80076

== ENCOUNTER 2023-03-31 10:01 | Emergency (ER) | payer BC ==
[2023-03-31 10:40] VITALS: BP 135/78; PULSE 100; RESP 18; TEMP 99.6
--- NOTE | 2023-03-31 10:58 | XR ---
EXAMINATION TYPE: XR chest 2V DATE OF EXAM: 03/31/2023 COMPARISON: 06/15/2021 HISTORY: 52-year-old male with cough and congestion TECHNIQUE: PA and lateral views FINDINGS: The cardiomediastinal silhouette, aorta, and pulmonary vasculature are within normal limits. Lungs an d pleural spaces are clear. IMPRESSION: No acute cardiopulmonary process.
--- NOTE | 2023-03-31 12:14 | ED ---
URI HPI - General Chief Complaint: Upper Respiratory Infection Stated Complaint: Flu Symptoms Time Seen by Provider: 03/31/23 10:24 Source: patient, RN notes reviewed Mode of arrival: ambulatory Limitations: no limitations - History of Present Illness Initial Comments: 52-year-old male presents emergency Department with chief complaint cold-like symptoms. Patient has been sick for several days. Patient states is a kilo for, fever, chills. Patient states he may have been exposed to sick contacts. Patient denies any GI symptoms. - Related Data Home Medications Medication Instructions Recorded Confirmed modafiniL [Provigil] 200 mg PO BID 05/22/22 05/23/22 Allergies Allergy/AdvReac Type Severity Reaction Status Date / Time bupropion Allergy Rash/Hives Verified 03/31/23 10:18 Review of Systems ROS Statement: Those systems with pertinent positive or pertinent negative responses have been documented in the HPI. ROS Other: All systems not noted in ROS Statement are negative. Past Medical History Past Medical History: Fibromyalgia, Thyroid Disorder Additional Past Medical History / Comment(s): L tibial plateau fracture being treated medically, past hypothyroid/no longer needs to take medication. History of Any Multi-Drug Resistant Organisms: None Reported Past Surgical History: No Surgical Hx Reported Additional Past Surgical History / Comment(s): EGD, colonoscopy, capsule endoscopy Past Anesthesia/Blood Transfusion Reactions: No Reported Reaction Past Psychological History: No Psychological Hx Reported Smoking Status: Never smoker Past Alcohol Use History: None Reported Past Drug Use History: None Reported - Past Family History Father Family Medical History: Dementia, Vascular Disorder Additional Family Medical History / Comment(s): AAA repair Mother Family Medical History: Hypertension, Musculoskeletal Disorder, Neurologic Disorder Additional Family Medical History / Comment(s): Parkinson's, Reynaulds General Exam Limitations: no limitations General appearance: alert, in no apparent distress Head exam: Present: atraumatic, normocephalic, normal inspection Eye exam: Present: normal appearance, PERRL, EOMI. Absent: scleral icterus, conjunctival injection, periorbital swelling ENT exam: Present: normal exam, mucous membranes moist Neck exam: Present: normal inspection, full ROM. Absent: tenderness, meningismus, lymphadenopathy Respiratory exam: Present: normal lung sounds bilaterally. Absent: respiratory distress, wheezes, rales, rhonchi, stridor Cardiovascular Exam: Present: regular rate, normal rhythm, normal heart sounds. Absent: systolic murmur, diastolic murmur, rubs, gallop, clicks Course Vital Signs 03/31/23 10:15 Temperature 99.6 F Pulse Rate 100 Respiratory 18 Rate Blood Pressure 135/78 O2 Sat by Pulse 100 Oximetry Medical Decision Making - Medical Decision Making Was pt. sent in by a medical professional or institution ([facility] Gamble, CUSTOMER [employer]ICE [employer], urgent care, hospital, or care home...) When possible be specific @ -No Did you speak to anyone other than the patient for history (EMS, parent, family, police, friend...)? What history was obtained from this source @ -No Did you review nursing and triage notes (agree or disagree)? Why? @ -I reviewed and agree with nursing and triage notes Were old charts reviewed (outside hosp., previous admission, EMS record, old EKG, old radiological studies, urgent care reports/EKG's, care home records)? Report findings @ -No old charts were reviewed Differential Diagnosis (chest pain, altered mental status, abdominal pain women, abdominal pain men, vaginal bleeding, weakness, fever, dyspnea, syncope, headache, dizziness, GI bleed, back pain, seizure, CVA, palpatations, mental health, musculoskeletal)? @ -COVID 19, RSV, influenza, pneumonia, acute bronchitis, URI, this list is not all inclusivele EKG interpreted by me (3pts min.). @ -[None X-rays interpreted by me (1pt min.). @ -[Chest x-ray shows no acute cardiopulmonary process CT interpreted by me (1pt min.). @ -None done U/S interpreted by me (1pt. min.). @ -None done What testing was considered but not performed or refused? (CT, X-rays, U/S, labs)? Why? @ -None What meds were considered but not given or refused? Why? @ -None Did you discuss the management of the patient with other professionals (professionals i.e. GENTRY Gamble, C[employer]ER [employer], lab, RT, psych nurse, certified social workers in health care, metal tank builder, teacher, strike warfare/missile systems officer, immigration case worker)? Give summary @ -No Was smoking cessation discussed for >3mins.? @ -No Was critical care preformed (if so, how long)? @ -No Were there social determinants of health that impacted care today? How? (Homelessness, low income, unemployed, alcoholism, drug addiction, transportation, low edu. Level, literacy, decrease access to med. care, nursing home, rehab)? @ -No Was there de-escalation of care discussed even if they declined (Discuss DNR or withdrawal of care, Hospice)? DNR status @ -No What co-morbidities impacted this encounter? (DM, HTN, Smoking, COPD, CAD, Cancer, CVA, ARF, Chemo, Hep., AIDS, mental health diagnosis, sleep apnea, morbid obesity)? @ -None Was patient admitted / discharged? Hospital course, mention meds given and route, prescriptions, significant lab abnormalities, going to OR and other pertinent info. @ -[Discharged patient's influenza A positive. Patient has a symptoms for several days vitals an x-ray unremarkable be discharged in stable condition. Undiagnosed new problem with uncertain prognosis? @ -No Drug Therapy requiring intensive monitoring for toxicity (Heparin, Nitro, Insulin, Cardizem)? @ -No Were any procedures done? @ -No Diagnosis/symptom? @ -[Influenza acute Uncomplicated (without systemic symptoms) or Complicated (systemic symptoms)? @ -Uncomplicated Side effects of treatment? @ -No Exacerbation, Progression, or Severe Exacerbation? @ -No Poses a threat to life or bodily function? How? (Chest pain, [place], SC, pneumonia, PE, COPD, DKA, ARF, appy, cholecystitis, CVA, Diverticulitis, Homicidal, Suicidal, threat to staff... and all critical care pts) @ -No - Lab Data Lab Results 03/31/23 Range/Units 10:19 Influenza Type A (PCR) Detected A (Not Detectd) Influenza Type B (PCR) Not Detected (Not Detectd) RSV (PCR) Not Detected (Not Detectd) SARS-CoV-2 (PCR) Not Detected (Not Detectd) Disposition Clinical Impression: Influenza A Disposition: HOME SELF-CARE Condition: Stable Instructions (If sedation given, give patient instructions): Influenza (ED) Additional Instructions: Please return to the Emergency Department if symptoms worsen or any other concerns. Is patient prescribed a controlled substance at d/c from ED?: No Referrals: Roberto Jewell DO [Primary Care Provider] - 1-2 days Time of Disposition: 12:14
== END 2023-03-31 12:45 | disposition home or self-care (01) ==
LOC: EC 10:01
DX: J10.1 Influenza due to other identified influenza virus with other respiratory manifestations (principal); Z88.8 Allergy status to other drugs, medicaments and biological substances; Z20.822 Contact with and (suspected) exposure to COVID-19
CPT/HCPCS: 71046; 87636; 99283

== ENCOUNTER → 2023-04-30 | Outpatient (CLI) | payer BC ==
--- NOTE | 2023-05-01 10:13 | CA ---
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 67 - 155 / 56 - 104 cm??? LV Systolic Volume MOD BP 32.8 cm??? 22 - 58 / 19 - 49 cm??? LV Ejection Fraction MOD BP 49.7 % >= 55 % LV Cardiac Index MOD BP 1174.8 cm???/min???m??? LV Diastolic Volume MOD 4C 49.4 cm??? LV Systolic Volume MOD 4C 31.0 cm??? LV Ejection Fraction MOD 4C 37.3 % LV Cardiac Index MOD 4C 667.3 cm???/min???m??? LV Diastolic Length 4C 5.3 cm LV Systolic Length 4C 5.2 cm LV Diastolic Volume MOD 2C 99.5 cm??? LV Systolic Volume MOD 2C 32.5 cm??? LV Ejection Fraction MOD 2C 67.3 % LV Cardiac Index MOD 2C 2427.6 cm???/min???m??? LV Diastolic Length 2C 6.9 cm LV Systolic Length 2C 5.6 cm LA Volume 43.3 cm??? 18 - 58 / 22 - 52 cm??? LA Volume Index 20.4 cm???/m??? 16 - 28 cm???/m??? DOPPLER AV Peak Velocity 139.2 cm/s AV Peak Gradient 7.8 mmHg LVOT Peak Velocity 94.3 cm/s LVOT Peak Gradient 3.6 mmHg LVOT Velocity Time Integral 17.5 cm LVOT Stroke Volume 58.2 cm??? LVOT Stroke Volume Index 27.4 ml/m??? LVOT Cardiac Index 2108.7 cm???/min???m??? AV Area Cont Eq pk 2.2 cm??? MV Peak Velocity 92.7 cm/s MV Peak Gradient 3.4 mmHg MV Mean Velocity 46.4 cm/s MV Mean Gradient 1.1 mmHg MV Velocity Time Integral 29.7 cm MR Peak Velocity 268.1 cm/s MR Peak Gradient 28.8 mmHg Mitral E Point Velocity 79.9 cm/s Mitral A Point Velocity 58.3 cm/s Mitral E to A Ratio 1.4 MV Deceleration Time 236.9 ms TR Peak Velocity 95.5 cm/s TR Peak Gradient 3.7 mmHg Right Ventricular Systolic Press 8.7 mmHg FINDINGS Left Ventricle Normal LV size and wall thickness. Left ventricular ejection fraction is estimated at 55-60_ %. Right Ventricle Normal right ventricular size and function. Right Atrium Normal right atrial size. Left Atrium Normal left atrial size. Mitral Valve Structurally normal mitral valve. Aortic Valve Trileaflet aortic valve. Tricuspid Valve Structurally normal tricuspid valve. Trace TR. Pulmonic Valve Structurally normal pulmonic valve. Trace pulmonic regurgitation. Pericardium Normal pericardium. Aorta Normal size aortic root. CONCLUSIONS Normal LV systolic function Previewed by: Dr. Reji Chandra MD (Electronically Signed) Final Date: 01 May 2023 10:12
== END | disposition home or self-care (01) ==
LOC: RADECHMAIN 16:20
PROVIDERS: ATTEND Family Medicine
DX: I51.89 Other ill-defined heart diseases (principal)
CPT/HCPCS: 93306

== ENCOUNTER → 2024-01-21 | Outpatient (CLI) | payer BC ==
[2024-01-22 02:34] LABS: Basophils # (A) 0.03 X 10*3/uL (0.00-0.10); Basophils % (A) 0.5 %; Eosinophils # (A) 0.05 X 10*3/uL (0.04-0.35); Eosinophils % (A) 0.8 %; HCT 44.6 % (39.6-50.0); HGB 14.3 g/dL (13.0-17.0); Lymphocytes # (A) 1.43 X 10*3/uL (0.90-5.00); Lymphocytes % (A) 24.2 %; MCH 29.5 pg (27.0-32.0); MCHC 32.1 g/dL (32.0-37.0); MCV 92.1 FL (80.0-97.0); Mean Platelet Volume 10.2 FL (9.5-12.2); Monocytes # (A) 0.39 X 10*3/uL (0.20-1.00); Monocytes % (A) 6.6 %; NRBC Per 100 WBC 0 X 10*3/uL (0.00-0.01); Neutrophils # (A) 3.99 X 10*3/uL (1.80-7.70); Neutrophils % (A) 67.7 %; Platelet Count 136 X 10*3/uL (140-440); RBC 4.84 X 10*6/uL (4.40-5.60); RDW 12.3 % (11.5-14.5)
[2024-01-22 03:42] LABS: % Iron Saturation 19.63 (15.00-50.00); ALT 18 U/L (10-49); AST 19 U/L (14-35); Albumin 4.7 g/dL (3.8-4.9); Albumin/Globulin Ratio 2.14 Ratio (1.60-3.17); Alkaline Phosphatase 91 U/L (41-126); Blood Urea Nitrogen 21.1 mg/dL (9.0-27.0); Calcium 9.2 mg/dL (8.7-10.3); Carbon Dioxide 26.2 mmol/L (21.6-31.8); Chloride 104 mmol/L (96-109); Creatine Kinase 161 U/L (35-257); Globulin 2.2 g/dL (1.6-3.3); Glucose 92 mg/dL (70-110); Iron 75 UG/DL (65-175); Potassium 4.3 mmol/L (3.5-5.5); Sodium 141 mmol/L (135-145); Total Bilirubin <0.2 mg/dL (0.3-1.2); Total Iron Binding Capacity 382 UG/DL (228-460); Total Protein 6.9 g/dL (6.2-8.2)
[2024-01-22 03:53] LABS: C Reactive Protein, High Sens <0.150 mg/L (0.000-3.000); Rheumatoid Factor, Qnt <15 IU/mL (0-15)
[2024-01-22 04:47] LABS: Erythrocyte Sedimentation Rate 8 mm/Hr (0-20)
[2024-01-22 05:36] LABS: EBV - EA (IgG) <5.0 U/mL (<9.0)
[2024-01-22 06:05] LABS: Anti-Smith Ab Interp Negative (Negative); EBV-EA (IgG) 0.3 AI; EBV-EBNA(IgG) <0.2; EBV-VCA (IgG) 7.7 AI; EBV-VCA (IgM) <0.2 AI; JO-1 IgG Antibody <0.2 AI
[2024-01-22 11:20] LABS: Aldolase 3.4 U/L (1.2-7.6)
[2024-01-22 11:41] LABS: HLA B27 NEGATIVE
[2024-01-23 13:08] LABS: Myoglobin 30 ng/mL (<=72)
[2024-01-25 08:35] LABS: Vit B1(Thiamine) 65 ug/L (38-122)
== END | disposition home or self-care (01) ==
LOC: LABWHC1 15:54
PROVIDERS: ATTEND Family Medicine
DX: R53.81 Other malaise (principal)
CPT/HCPCS: 36415; 80053; 82085; 82306; 82550; 82607; 82671; 82746; 83540; 83550; 83735; 83874; 84402; 84403; 84425; 84439; 84443; 85025; 85652; 86038; 86141; 86160; 86235; 86431; 86644; 86645; 86663; 86664; 86665; 86812

== ENCOUNTER → 2024-10-20 | Outpatient (CLI) | payer BC ==
[2024-10-20 19:15] LABS: Basophils # (A) 0.04 X 10*3/uL (0.00-0.10); Basophils % (A) 0.6 %; Eosinophils # (A) 0.12 X 10*3/uL (0.04-0.35); Eosinophils % (A) 1.8 %; HCT 43.4 % (39.6-50.0); HGB 13.8 g/dL (13.0-17.0); Immature Grans, Automated 0.20 %; Lymphocytes # (A) 1.49 X 10*3/uL (0.90-5.00); Lymphocytes % (A) 22.9 %; MCH 28.9 pg (27.0-32.0); MCHC 31.8 g/dL (32.0-37.0); MCV 91.0 FL (80.0-97.0); Monocytes # (A) 0.40 X 10*3/uL (0.20-1.00); Monocytes % (A) 6.1 %; NRBC Per 100 WBC 0 X 10*3/uL (0.00-0.01); Neutrophils # (A) 4.45 X 10*3/uL (1.80-7.70); Neutrophils % (A) 68.4 %; Platelet Count 177 X 10*3/uL (140-440); RBC 4.77 X 10*6/uL (4.40-5.60); RDW 12.5 % (11.5-14.5); WBC 6.51 X 10*3/uL (4.50-10.00)
[2024-10-20 19:19] LABS: ALT 23 U/L (10-49); AST 24 U/L (14-35); Albumin 4.5 g/dL (3.8-4.9); Albumin/Globulin Ratio 1.96 Ratio (1.60-3.17); Alkaline Phosphatase 78 U/L (41-126); Anion Gap 9.60 mmol/L (4.00-12.00); BUN/Creat Ratio 18.33 Ratio (12.00-20.00); Blood Urea Nitrogen 16.5 mg/dL (9.0-27.0); Calcium 9.0 mg/dL (8.7-10.3); Carbon Dioxide 27.4 mmol/L (21.6-31.8); Chloride 105 mmol/L (96-109); Globulin 2.3 g/dL (1.6-3.3); Glucose 94 mg/dL (70-110); Potassium 4.6 mmol/L (3.5-5.5); Sodium 142 mmol/L (135-145); Total Protein 6.8 g/dL (6.2-8.2)
== END | disposition home or self-care (01) ==
LOC: LABWHC1 13:40
PROVIDERS: ATTEND Nurse Practitioner Family
DX: R10.9 Unspecified abdominal pain (principal); G89.29 Other chronic pain
CPT/HCPCS: 36415; 80053; 85025